=== PATIENT | female | born 1960 | race Caucasian/White ===

== ENCOUNTER 2016-03-23 00:55 | Emergency (ER) | payer OTHER ==
[~2016-03-23] VITALS: Ht 170.2 cm; Wt 61.0 kg
[~2016-03-23 00:55] MED LIST: FLUT16SP17 NASAL; LORA10TA3 PO; MOME13HF INHALATION; MONT10TA24 PO; OMEP40CA3 PO; VENL225T PO
[2016-03-23 01:12] VITALS: Ht 170.2 cm; Wt 61.0 kg
[2016-03-23] MEDS ORDERED: KETOROLAC 30 MG INJ IV STA (02:10)
--- NOTE | 2016-03-23 03:03 | RADRPT ---
PROCEDURE: CT brain without contrast. CLINICAL INDICATION: Left facial numbness. TECHNIQUE: CT scan of the brain was performed on a multi-detector high-resolution CT scanner. Co ntiguous axial images were obtained from the skull base to the vertex without intravenous contrast. Coronal and sagittal reformatted images were also obtained. Images were reviewed on the [employer]. One or more of the following dose reduction techniques were used: - Automated exposure control. - Adjustment of the mA and/or kV according to patient size. - Use of iterative reconstruction technique. Exam CTD/vol = 44.03 mGy. Total exam DLP = 720.23 mGy-cm. COMPARISON: 08/18/2013. FINDINGS: The ventricles and cortical sulci are within normal limits for patient's age. There is a ella cister na magna. There are no areas of abnormal attenuation within the brain parenchyma. There is no mass effect or midline shift. There is no intracranial hemorrhage or abnormal extra-axial collection. The calvarium is intact. There is no evidence of fracture. Visualized paranasal sinuses and mastoid air cells are clear. IMPRESSION: No acute intracranial abnormality identified. .Guicho Pitts MD, MD Date Time Electronically viewed and signed by .Guicho Pitts MD, on 03/23/2016 03:02 .T/
[2016-03-23 03:41] LABS: POTASSIUM 3.5 mmol/L (3.5-5.1)
[2016-03-23 03:43] LABS: CREATININE 0.59 mg/dl (0.44-1.00); INR 0.97; PROTIME 12.9 Sec (12.2-14.2)
[2016-03-23 03:44] LABS: CALCIUM 9.4 mg/dl (8.4-10.2); PARTIAL THROMBOPLASTIN TIME 25.2 Sec (25.0-35.0)
[2016-03-23 03:51] LABS: BASOPHILS % 0.3 % (0.0-2.0); EOSINOPHILS # 0.3 10^3/ul (0.0-0.5); EOSINOPHILS % 3.1 % (0.0-7.0); HEMATOCRIT 40.3 % (37.0-47.0); HEMOGLOBIN 13.4 g/dl (12.0-16.0); LYMPHOCYTES # 2.3 10^3/ul (0.8-2.9); MEAN CORPUSCULAR HEMOGLOBIN 29.1 pg (29.0-33.0); MEAN CORPUSCULAR HGB CONC 33.3 g/dl (32.0-37.0); MEAN CORPUSCULAR VOLUME 87.2 fl (82.0-101.0); MEAN PLATELET VOLUME 7.6 fl (7.4-10.4); MONOCYTE # 0.6 10^3/ul (0.3-0.9); MONOCYTES % 6.7 % (0.0-11.0); NEUTROPHIL # 5.3 10^3/ul (1.6-7.5); NEUTROPHILS % 62.9 % (39.0-77.0); PLATELET COUNT 313 10^3/UL (140-440); RED BLOOD COUNT 4.62 10^6/ul (4.20-5.40); RED CELL DISTRIBUTION WIDTH 13.7 % (11.5-14.5); UNCORRECTED WBC 8.4 10^3/ul (4.8-10.8); WHITE BLOOD COUNT 8.4 10^3/ul (4.8-10.8)
[2016-03-23 03:56] LABS: CONDITION 1
[2016-03-23 05:05] VITALS: BP 118/74; PULSE 86; RESP 17; TEMP 98.3
--- NOTE | 2016-03-23 05:44 | ERD ---
ER Documentation Chief Complaint Date/Time DATE: 03/23/16 TIME: 05:38 Chief Complaint left facial numbness & left facial droop x 2 days, no neuro deficits noted HPI 55-year-old female presenting complaining of 3 days of left-sided facial tingling associated with pain. Now she has associated left-sided headache that radiates along the side of her left head into the back of her head. She denies any neck pain or stiffness. She felt some associated eye pain this morning without any blurry vision or pain with eye movement. She states the pain is constant, nothing seems to make it better or worse. She has not tried any medication for the pain. She denies any focal weakness in her extremities. She has no difficulty ambulating. No recent trauma. ROS All systems reviewed and are negative except as per history of present illness. Medications Home Meds Reported Medications Mometasone-Formoterol (Dulera) 200-5 Mcg/Inh - 13 Gm Hfa.aer.ad, 2 PUFFS INHALATION BID, #1 INHALER 11/13/15 Venlafaxine Hcl* (Venlafaxine Hcl ER*) 225 Mg Tab.er.24, 225 MG PO DAILY, TAB.SA 11/13/15 Montelukast Sodium* (Montelukast Sodium*) 10 Mg Tablet, 10 MG PO QHS, #30 TAB 11/13/15 Loratadine* (Loratadine*) 10 Mg Tablet, 10 MG PO DAILY, #30 TAB 08/14/15 Fluticasone Propionate* (Fluticasone Propionate* Nasal) 50 Mcg/Watson - 16 Gm Watson.susp, 1 SPRAY NASAL DAILY, #1 BOTTLE TO EACH NOSTRIL 08/14/15 Omeprazole* (Prilosec*) 40 Mg Capsule.dr, 40 MG PO AC BREAKFAST, CAP 05/30/14 Allergies Allergies: Coded Allergies: Penicillins (Verified Allergy, Mild, RASH, 11/13/15) PMhx/Soc History of Surgery: Yes (APPENDECTOMY, HYSTERECTOMY) Anesthesia Reaction: No Hx Neurological Disorder: No Hx Respiratory Disorders: Yes (ASTHMA) Hx Cardiac Disorders: Yes (BRADYCARDIA) Hx Psychiatric Problems: Yes (DEPRESSION) Hx Miscellaneous Medical Probl: Yes (HYPOTHYROIDISM) Hx Alcohol Use: No Hx Substance Use: No Hx Tobacco Use: No Smoking Status: Never smoker FmHx Family History: No diabetes Physical Exam Vitals Vital Signs Date Time Temp Pulse Resp B/P Pulse Ox O2 Delivery O2 Flow Rate FiO2 03/23/16 05:05 98.3 86 17 118/74 99 03/23/16 03:50 98.3 75 17 129/77 99 03/23/16 01:50 98.3 75 17 121/60 99 03/23/16 01:12 98.3 59 20 115/57 99 Physical Exam Const: Well-appearing, no distress Head: Atraumatic Eyes: Normal Conjunctiva, EOMI, Perrla ENT: Normal External Ears, Nose and Mouth. Neck: Full range of motion. 2+ carotid pulses bilaterally, no bruits. No meningismus. Resp: Clear to auscultation bilaterally Cardio: Regular rate and rhythm, no murmurs Abd: Soft, non tender, non distended. Normal bowel sounds Skin: No petechiae or rashes Back: No midline or flank tenderness Ext: No cyanosis, or edema Neuro: M/S: Alert and oriented Face: EOMI, sensation intact to the left trigeminal distribution but decreased when compared to the right. All other cranial nerves intact Motor: Normal strength throughout Sensation: Normal sensation throughout Speech: Normal Cerebel: Normal coordination Normal gait Normal finger to nose DTR: 2+ and symmetric upper/lower extremities Psych: Normal Mood and Affect Result Diagram: 03/23/16 0230 03/23/16 0230 Results 24 hrs Laboratory Tests Test 03/23/16 02:30 Activated Partial Thromboplast Time 25.2Sec Anion Gap 16 Basophils # 0.010^3/ul Basophils % 0.3% Blood Urea Nitrogen 22mg/dl Calcium Level 9.4mg/dl Carbon Dioxide Level 28mmol/L Chloride Level 103mmol/L Creatinine 0.59mg/dl Eosinophils # 0.310^3/ul Eosinophils % 3.1% Glucose Level 117mg/dl Hematocrit 40.3% Hemoglobin 13.4g/dl INR International Normalized Ratio 0.97 Lymphocytes # 2.310^3/ul Lymphocytes % 27.0% Mean Corpuscular Hemoglobin 29.1pg Mean Corpuscular Hemoglobin Concent 33.3g/dl Mean Corpuscular Volume 87.2fl Mean Platelet Volume 7.6fl Monocytes # 0.610^3/ul Monocytes % 6.7% Neutrophils # 5.310^3/ul Neutrophils % 62.9% Nucleated Red Blood Cells # 0.010^3/ul Nucleated Red Blood Cells % 0.0/100WBC Platelet Count 73231^3/UL Potassium Level 3.5mmol/L Prothrombin Time 12.9Sec Prothrombin Time Ratio 1.0 Red Blood Count 4.6210^6/ul Red Cell Distribution Width 13.7% Sodium Level 143mmol/L White Blood Count 8.410^3/ul Current Medications Medications (Trade) Dose Ordered Sig/Selam Route PRN Reason Start Time Stop Time Status Last Admin Dose Admin Ketorolac Tromethamine (Toradol) 30 mg ONCE STAT IV 03/23/16 02:10 03/23/16 02:13 DC 03/23/16 02:37 Procedures/MDM Patient is complaining of left-sided facial pain and tingling with left-sided headache. Her neuro exam is nonfocal other than mild decreased sensation in the trigeminal distribution on the left side. Her CT head was unremarkable. Her labs are also unremarkable. After Toradol, the patient states that her pain has significantly improved. I have a low suspicion for carotid dissection or acute CVA. I suspect her symptoms may be secondary to a migraine versus trigeminal neuralgia versus other peripheral neuritis. there is no evidence of Bean's palsy. However I urged the patient to see her primary care doctor as soon as possible within the next 1-2 days for further evaluation and outpatient workup. Departure Diagnosis: Primary Impression: Left facial pain Additional Impressions: Numbness and tingling of left side of face Left-sided headache Condition: Stable Patient Instructions: What Are Migraine and Tension Headaches?, Trigeminal Neuralgia RONYE MIKE MD Mar 23, 2016 05:44
== END 2016-03-23 05:08 | disposition home or self-care (01) ==
LOC: E/R 00:55
DX: R51 Headache (principal); R40.2252 Coma scale, best verbal response, oriented, at arrival to emergency department; R20.0 Anesthesia of skin; J45.909 Unspecified asthma, uncomplicated; E03.9 Hypothyroidism, unspecified; R40.2362 Coma scale, best motor response, obeys commands, at arrival to emergency department; R40.2142 Coma scale, eyes open, spontaneous, at arrival to emergency department
CPT/HCPCS: 36415; 70450; 80048; 85025; 85610; 85651; 85730; 96374; 99285; J1885

== ENCOUNTER 2016-04-18 09:06 | Emergency (ER) | payer OTHER ==
[~2016-04-18] VITALS: Wt 60.5 kg
[2016-04-18] MEDS ORDERED: TRAM50TA2 PO (09:32)
[2016-04-18] MEDS ORDERED: IBUP-1542 PO (09:33)
[2016-04-18] MEDS ORDERED: HYDR30CR75 PR (09:33)
--- NOTE | 2016-04-18 09:35 | ERD ---
ER Documentation Chief Complaint Date/Time DATE: 04/18/16 TIME: 09:34 Chief Complaint RECTAL SWELLING FOR 5 DAYS. NO BLEEDING MILD DIARRHEA. PAIN IS WORSE HPI Patient is a 35-year-old female with past medical history of hypothyroidism, asthma, gastritis who presents to the emergency department with rectal pain 5 days. Patient states that she last took ibuprofen 600 mg at 6 AM today. Patient denies any rectal bleeding. Patient denies any fever, chills, nausea, vomiting, abdominal pain. Patient did have diarrhea 2 days ago which has now resolved. Patient reports decreased H2O intake and does report straining when having bowel movements. ROS All systems reviewed and are negative except as per history of present illness. Medications Home Meds Active Scripts Hydrocortisone Acetate* (Anusol-HC*) 30 Gm Cream.gm., 1 APPLIC MD TID, #1 TUB Prov:SAULO BAILEY PA-C 04/18/16 Ibuprofen* (Motrin*) 600 Mg Tab, 600 MG PO Q6, #20 TAB Prov:SAULO BAILEY PA-C 04/18/16 Tramadol HCl (Tramadol HCl) 50 Mg Tablet, 50 MG PO Q6 Y for PAIN, #10 TAB Prov:SAULO BAILEY PA-C 04/18/16 Reported Medications Mometasone-Formoterol (Dulera) 200-5 Mcg/Inh - 13 Gm Hfa.aer.ad, 2 PUFFS INHALATION BID, #1 INHALER 11/13/15 Venlafaxine Hcl* (Venlafaxine Hcl ER*) 225 Mg Tab.er.24, 225 MG PO DAILY, TAB.SA 11/13/15 Montelukast Sodium* (Montelukast Sodium*) 10 Mg Tablet, 10 MG PO QHS, #30 TAB 11/13/15 Loratadine* (Loratadine*) 10 Mg Tablet, 10 MG PO DAILY, #30 TAB 08/14/15 Fluticasone Propionate* (Fluticasone Propionate* Nasal) 50 Mcg/Buford - 16 Gm Buford.susp, 1 SPRAY NASAL DAILY, #1 BOTTLE TO EACH NOSTRIL 08/14/15 Omeprazole* (Prilosec*) 40 Mg Capsule.dr, 40 MG PO AC BREAKFAST, CAP 05/30/14 Allergies Allergies: Coded Allergies: Penicillins (Verified Allergy, Mild, RASH, 11/13/15) PMhx/Soc History of Surgery: Yes (APPENDECTOMY, HYSTERECTOMY) Anesthesia Reaction: No Hx Neurological Disorder: No Hx Respiratory Disorders: Yes (ASTHMA) Hx Cardiac Disorders: Yes (BRADYCARDIA) Hx Psychiatric Problems: Yes (DEPRESSION) Hx Miscellaneous Medical Probl: Yes (HYPOTHYROIDISM) Hx Alcohol Use: No Hx Substance Use: No Hx Tobacco Use: No Physical Exam Vitals Vital Signs Date Time Temp Pulse Resp B/P Pulse Ox O2 Delivery O2 Flow Rate FiO2 04/18/16 09:10 97.0 59 20 108/57 99 Physical Exam GENERAL: Well-developed, well-nourished female. Appears in no acute distress. HEAD: Normocephalic, atraumatic. EYES: Pupils are equally reactive bilaterally. EOMs grossly intact. No conjunctival erythema. ENT: Moist mucous membranes. No uvula deviation. No kissing tonsils. NECK: Supple. No meningismus. Normal range of motion of the neck. LUNG: Clear to auscultation bilaterally. No rhonchi, wheezing, rales or coarse breath sounds. HEART: Regular rate and rhythm. No murmurs, rubs or gallops. ABDOMEN: No scars, ecchymosis or rashes noted. Soft, nontender, and nondistended. Positive bowel sounds in all four quadrants. No rebound tenderness , no guarding. (-) McBurney's point tenderness. No CVA tenderness. RECTAL: Normal anus with skin tag and external hemorrhoid. Normal anal sphincter tone. No rectal bleeding noted. BACK: No midline tenderness. EXTREMITIES: Equal pulses bilaterally. No peripheral clubbing, cyanosis or edema. No unilateral leg swelling. NEUROLOGIC: Alert and oriented. Moving all four extremities without any difficulty. Normal speech. Steady gait. SKIN: Normal color. Warm and dry. No rashes or lesions. Procedures/MDM MEDICAL DECISION MAKING: Recent is a 55-year-old female who presents with rectal pain 5 days. Patient denies any bleeding. Vital signs were reviewed. Patient is afebrile. Patient was not hypoxic. Patient was hemodynamically stable. Physical exam findings are most consistent with external hemorrhoid. At this time, the patient's presentation is most consistent with hemorrhoids. Unable to rule out internal hemorrhoids at this time. Low suspicion for thrombosed hemorrhoid, anorectal abscess, anal fissure, fistula, mass, pilonidal cyst, rectal prolapse, rectal foreign body. Patient was advised to increase fiber intake and H20 intake. Patient advised to avoid straining. PRESCRIPTION: Anusol, Tramadol, Ibuprofen She was advised to use sitz baths. DISCHARGE: At this time, patient is stable for discharge and outpatient management. I have instructed the patient to follow-up with his/her primary care physician in 1-2 days. I have discussed with the patient the possibility of needing to see a GI specialist for further workup and imaging studies if symptoms persist. I have instructed the patient to promptly return to the ER for any new or worsening symptoms including increased pain, fever, nausea, vomiting, weakness or LOC. The patient and/or family expressed understanding of and agreement with this plan. All questions were answered. Home care instructions were provided. Departure Diagnosis: Primary Impression: Hemorrhoidal skin tags Condition: Stable Patient Instructions: Hemorrhoids Referrals: ELIEL JONES MD,HAL COKER,BOGDAN MANDEL MD, MD [facility] Additional Instructions: Llame al doctor ALEA y karen janee EMILY PARA DENTRO DE 1-2 JOSEPH.Dgale a la secretaria que nosotros le instruimos hacer esta emily.Avise o llame si dey condicin se empeora antes de la emily. Regresa aqui si peor o no mejor. Va a la doctor de GI specialista. Cheri baths con sitz bath. SAULO BAILEY PA-C Apr 18, 2016 09:35
== END 2016-04-18 10:05 | disposition home or self-care (01) ==
LOC: FTE 09:06
DX: K64.4 Residual hemorrhoidal skin tags (principal); E03.9 Hypothyroidism, unspecified; J45.909 Unspecified asthma, uncomplicated
CPT/HCPCS: 99283

== ENCOUNTER 2016-04-23 11:31 | Emergency (ER) | payer OTHER ==
[~2016-04-23] VITALS: Wt 68.0 kg
[~2016-04-23 11:31] MED LIST changes: +HYDR30CR75 PR; +IBUP-1542 PO; +TRAM50TA2 PO
[2016-04-23] MEDS ORDERED: ONDANSETRON 4 MG INJ IV STA (12:06)
[2016-04-23] MEDS ORDERED: morphine 4 MG/ML VIAL IV STA (12:06)
[2016-04-23] MEDS ORDERED: CIPROFLOXACIN 400MG/D5W 200 ML IVPB STA (12:06)
[2016-04-23 12:53] LABS: ADD UMIC YES; URINE BILIRUBIN (Dip) NEGATIVE (NEGATIVE); URINE BLOOD (Dip) 3+ (NEGATIVE); URINE COLOR LT. YELLOW (YELLOW); URINE GLUCOSE (Dip) NEGATIVE (NEGATIVE); URINE KETONES (Dip) NEGATIVE (NEGATIVE); URINE LEUKOCYTE ESTERASE (Dip) 1+ (NEGATIVE); URINE NITRITE (Dip) NEGATIVE (NEGATIVE); URINE TOTAL PROTEIN (Dip) NEGATIVE (NEGATIVE); URINE UROBILINOGEN (Dip) 0.2 E.U./dL (0.1-1.0)
[2016-04-23 12:55] LABS: BASOPHILS % 0.6 % (0.0-2.0); EOSINOPHILS # 0.1 10^3/ul (0.0-0.5); EOSINOPHILS % 1.3 % (0.0-7.0); HEMATOCRIT 43.5 % (37.0-47.0); HEMOGLOBIN 14.6 g/dl (12.0-16.0); LYMPHOCYTES # 1.7 10^3/ul (0.8-2.9); LYMPHOCYTES % 25.8 % (15.0-51.0); MEAN CORPUSCULAR HEMOGLOBIN 29.1 pg (29.0-33.0); MEAN CORPUSCULAR HGB CONC 33.4 g/dl (32.0-37.0); MEAN CORPUSCULAR VOLUME 87.1 fl (82.0-101.0); MEAN PLATELET VOLUME 7.2 fl (7.4-10.4); MONOCYTE # 0.4 10^3/ul (0.3-0.9); MONOCYTES % 6.5 % (0.0-11.0); NEUTROPHIL # 4.4 10^3/ul (1.6-7.5); NEUTROPHILS % 65.8 % (39.0-77.0); PLATELET COUNT 330 10^3/UL (140-440); RED CELL DISTRIBUTION WIDTH 13.6 % (11.5-14.5); UNCORRECTED WBC 6.6 10^3/ul (4.8-10.8); WHITE BLOOD COUNT 6.6 10^3/ul (4.8-10.8)
[2016-04-23 13:13] LABS: ALBUMIN 4.5 g/dl (3.3-4.9); URINE RBCS 25-50 /HPF (0)
[2016-04-23 13:14] LABS: BACTERIA,URINE FEW; CONDITION 1; POTASSIUM 4.3 mmol/L (3.5-5.1); SQUAMOUS EPITHELIAL CELL,UR FEW
[2016-04-23 13:16] LABS: ALBUMIN/GLOBULIN RATIO 1.5; BILIRUBIN,INDIRECT 0.4 mg/dl (0-1.1); BILIRUBIN,TOTAL 0.4 mg/dl (0.2-1.3); CREATININE 0.61 mg/dl (0.44-1.00); TOTAL PROTEIN 7.5 g/dl (6.1-8.1)
[2016-04-23 13:17] LABS: CALCIUM 9.6 mg/dl (8.4-10.2)
--- NOTE | 2016-04-23 13:19 | ERD ---
ER Documentation Chief Complaint Date/Time DATE: 04/23/16 TIME: 13:15 Chief Complaint abd pain llq since yesterday, no vomiting, dysuria and hematuria today. HPI This is a 56-year-old female presents to the emergency department complaining of frequency urgency and dysuria with hematuria that began this morning upon awakening. Several days prior to arrival the patient was seen and evaluated in the emergency department and treated for hemorrhoids. She has been undergoing sitz bath's and denies any further rectal bleeding. She has had no hemoptysis no hematemesis and no melanotic stools. The patient indicates that in addition to the frequency urgency and dysuria she also developed the sudden onset of left lower quadrant abdominal pain several hours prior to arrival. The pain is been persistent and is worse with urination. The pain does not radiate to the back. She has had no fevers no shaking or chills. She has no chest pain or pressure that radiates to the neck arm back or jaw. ROS All systems reviewed and are negative except as per history of present illness. Medications Home Meds Active Scripts Hydrocortisone Acetate* (Anusol-HC*) 30 Gm Cream.gm., 1 APPLIC PA TID, #1 TUB Prov:SAULO BAILEY PA-C 04/18/16 Ibuprofen* (Motrin*) 600 Mg Tab, 600 MG PO Q6, #20 TAB Prov:SAULO BAILEY PA-C 04/18/16 Tramadol HCl (Tramadol HCl) 50 Mg Tablet, 50 MG PO Q6 Y for PAIN, #10 TAB Prov:SAULO BAILEY PA-C 04/18/16 Reported Medications Mometasone-Formoterol (Dulera) 200-5 Mcg/Inh - 13 Gm Hfa.aer.ad, 2 PUFFS INHALATION BID, #1 INHALER 11/13/15 Venlafaxine Hcl* (Venlafaxine Hcl ER*) 225 Mg Tab.er.24, 225 MG PO DAILY, TAB.SA 11/13/15 Montelukast Sodium* (Montelukast Sodium*) 10 Mg Tablet, 10 MG PO QHS, #30 TAB 11/13/15 Loratadine* (Loratadine*) 10 Mg Tablet, 10 MG PO DAILY, #30 TAB 08/14/15 Fluticasone Propionate* (Fluticasone Propionate* Nasal) 50 Mcg/Gaylord - 16 Gm Gaylord.susp, 1 SPRAY NASAL DAILY, #1 BOTTLE TO EACH NOSTRIL 08/14/15 Omeprazole* (Prilosec*) 40 Mg Capsule.dr, 40 MG PO AC BREAKFAST, CAP 05/30/14 Allergies Allergies: Coded Allergies: Penicillins (Verified Allergy, Mild, RASH, 11/13/15) PMhx/Soc History of Surgery: Yes (APPENDECTOMY, HYSTERECTOMY) Anesthesia Reaction: No Hx Neurological Disorder: No Hx Respiratory Disorders: Yes (ASTHMA) Hx Cardiac Disorders: Yes (BRADYCARDIA) Hx Psychiatric Problems: Yes (DEPRESSION) Hx Miscellaneous Medical Probl: Yes (HYPOTHYROIDISM) Hx Alcohol Use: No Hx Substance Use: No Hx Tobacco Use: No Smoking Status: Never smoker Physical Exam Vitals Vital Signs Date Time Temp Pulse Resp B/P Pulse Ox O2 Delivery O2 Flow Rate FiO2 04/23/16 11:33 98.8 63 20 132/73 99 Physical Exam Constitutional:Well-developed. Well-nourished. HEENT:Normocephalic. Atraumatic.Pupils were equal round reactive to light. Moist mucous membranes.No tonsillar exudates. Neck: No nuchal rigidity. No lymphadenopathy. No posterior cervical spine tenderness or step-offs. Respiratory: Not using accessory muscles of respiration.Lungs were clear to auscultation bilaterally. No rhonchi. No rales. No wheezing. Cardiovascular: Regular rate regular rhythm.No murmurs. No rubs were appreciated.S1, S2 normal. Distal pulses are palpable 2+ bilaterally. GI: Abdomen was soft. Mild suprapubic tenderness. Non Distended. No pulsatile abdominal masses or bruits. No rebound. No guarding. Bowel sounds were present and normal. Muscle skeletal: Full range of motion of both the upper and lower extremities bilaterally.Normal muscle tone.No assymetrical calf tenderness or swelling. Skin: No petechia, no purpura. No lesions on the palms or the soles of the feet. No maculopapular rash. NEURO: Patient was alert, awake, orientated x3.No facial droop. Gait observed and normal with no ataxia.Speech had regular rate and rhythm. No focal neurological deficits. Result Diagram: 04/23/16 1230 04/23/16 1230 Results 24 hrs Laboratory Tests Test 04/23/16 12:30 Alanine Aminotransferase (ALT/SGPT) 37IU/L Albumin 4.5g/dl Albumin/Globulin Ratio 1.50 Alkaline Phosphatase 75IU/L Anion Gap 17 Aspartate Amino Transf (AST/SGOT) 47IU/L Basophils # 0.010^3/ul Basophils % 0.6% Blood Morphology Comment Blood Urea Nitrogen 22mg/dl Calcium Level 9.6mg/dl Carbon Dioxide Level 27mmol/L Chloride Level 103mmol/L Creatinine 0.61mg/dl Direct Bilirubin 0.00mg/dl Eosinophils # 0.110^3/ul Eosinophils % 1.3% Globulin 3.00g/dl Glucose Level 96mg/dl Hematocrit 43.5% Hemoglobin 14.6g/dl Indirect Bilirubin 0.4mg/dl Lymphocytes # 1.710^3/ul Lymphocytes % 25.8% Mean Corpuscular Hemoglobin 29.1pg Mean Corpuscular Hemoglobin Concent 33.4g/dl Mean Corpuscular Volume 87.1fl Mean Platelet Volume 7.2fl Monocytes # 0.410^3/ul Monocytes % 6.5% Neutrophils # 4.410^3/ul Neutrophils % 65.8% Nucleated Red Blood Cells # 0.010^3/ul Nucleated Red Blood Cells % 0.0/100WBC Platelet Count 90819^3/UL Potassium Level 4.3mmol/L Red Blood Count 5.0010^6/ul Red Cell Distribution Width 13.6% Sodium Level 143mmol/L Total Bilirubin 0.4mg/dl Total Protein 7.5g/dl Urine Bacteria FEW Urine Bilirubin NEGATIVE Urine Clarity CLEAR Urine Color LT. YELLOW Urine Glucose NEGATIVE% Urine Hemoglobin 3+ Urine Ketones NEGATIVE Urine Leukocyte Esterase 1+ Urine Microscopic RBC 25-50/HPF Urine Microscopic WBC 2-5/HPF Urine Nitrite NEGATIVE Urine Specific [place] 1.015 Urine Squamous Epithelial Cells FEW Urine Total Protein NEGATIVE Urine Urobilinogen 0.2 E.U./dL Urine Yeast FEW Urine pH 7.0 White Blood Count 6.610^3/ul Current Medications Medications (Trade) Dose Ordered Sig/Selam Route PRN Reason Start Time Stop Time Status Last Admin Dose Admin Morphine Sulfate (morphine) 4 mg ONCE STAT IV 04/23/16 12:06 04/23/16 12:15 DC 04/23/16 12:32 Ondansetron HCl 4 mg 4 mg ONCE STAT IV 04/23/16 12:06 2/22/17 12:15 DC 04/23/16 12:31 Ciprofloxacin/ Dextrose (Cipro Ivpb) 200 ml @ 200 mls/hr ONCE STAT IVPB 04/23/16 12:06 04/23/16 13:05 DC 04/23/16 12:31 IV Flush 10 ml 10 ml STK-MED ONCE .ROUTE 04/23/16 14:25 04/23/16 14:26 DC 04/23/16 14:36 Sodium Chloride (NS) 100 ml @ ud STK-MED ONCE .ROUTE 04/23/16 14:25 04/23/16 14:26 DC 04/23/16 14:36 Iohexol (Omnipaque 300mg/ ml) 150 ml STK-MED ONCE .ROUTE 04/23/16 14:26 04/23/16 14:27 DC 04/23/16 14:37 Procedures/MDM This patient presented to the emergency department with complaints of physical exam findings suggestive of acute cystitis. Ancillary laboratory work was obtained and the patient had no leukocytosis, was afebrile and nontoxic in appearance. The patient did receive a liter bolus of 0.9 normal saline intravenous morphine and Zofran for analgesia control and the urinalysis was suggestive of leukocytosis but there is no pyuria. Given that the patient had gross hematuria I did obtain a CT scan of the abdomen at this time which showed no evidence of obstructive uropathy, perforated viscus or pyelonephritis. The patient received a dose of parenteral antibiotics which included ciprofloxacin given that she has an allergy to penicillin. The patient stated her pain had resolved and she felt comfortable being discharged home. The patient was discharged home in fair condition with a prescription of ciprofloxacin. The patient was instructed to return to the emergency department at any time if there was any worsening of their condition. The patient stated they would follow up with their PCP in the next 24-48 hours to initiate a suitable medication regimen under the care of their PCP as well as to allow their PCP to monitor any drug reactions. The patient was discharged home with prescriptions after they gave informed consent to the new medication. They were also fully informed by myself on the adverse effects and adverse drug interactions in order to provide adequate safeguards to prevent possible adverse reactions to medications. Departure Diagnosis: Primary Impression: Urinary tract infection Urinary tract infection type: acute cystitis Hematuria presence: with hematuria Qualified Code: N30.01 - Acute cystitis with hematuria Additional Impression: Abdominal pain Abdominal location: left lower quadrant Qualified Code: R10.32 - Left lower quadrant pain Condition: Fair BONILLA SWIFT Apr 23, 2016 13:19
[2016-04-23] MEDS ORDERED: SOD CHLORIDE 0.9% 100 ML ONE (14:25)
[2016-04-23] MEDS ORDERED: IOHEXOL 300MG/ML 150 ML BTL ONE (14:26)
--- NOTE | 2016-04-23 14:48 | RADRPT ---
PROCEDURE: CT Abdomen and Pelvis with contrast. CLINICAL INDICATION: Pain. TECHNIQUE: Multiple contiguous axial CT images of the abdomen and pelvis were obtained following t he administration of 99 cc of Omnipaque-300. Coronal and sagittal reconstructions were also perform ed. CTDIvol (mGy): 15.20; Total Exam DLP (mGy-cm): 858.54. One or more of the following dose reduction techniques were utilized: - Automated exposure control. - Adjustment of the mA and/or kV according to patient size. - Use of iterative reconstruction technique. COMPARISON: 06/02/2015. FINDINGS: Limited imaging of the lower thorax demonstrates a tiny calcified granuloma of the left lower lobe. The liver and spleen are homogeneous in enhancement. The gallbladder, pancreas and adrenal glands a re unremarkable. The kidneys are symmetric in size and enhancement. Multifocal contour deformities are seen within th e right kidney and suggest sequelae of cortical scarring. There is no hydronephrosis or abnormal per inephric inflammation. There are no ureteral stones. The abdominal aorta is normal in caliber. There is no periaortic / retroperitoneal lymphadenopathy. The stomach and small intestines are unremarkable. A moderate volume of formed stool seen throughou t the colon. The appendix is not visualized. There are no focal inflammatory changes of the mesent irving. There is no mesenteric lymphadenopathy. There is no ascites. The bladder is collapsed. The uterus is absent. The adnexa are unremarkable. There is no free pelv ic fluid. There is no pelvic sidewall or inguinal lymphadenopathy. Mild degenerative changes of the spine are present. Body wall soft tissues are unremarkable. IMPRESSION: No evidence of abdominopelvic mass, lymphadenopathy or acute inflammatory pathology. Multifocal contour deformities of the right kidney suggesting sequelae of cortical scarring. The ap pearance of the right kidney is unchanged from prior examination. There is no evidence of nephroure terolithiasis, urinary tract obstruction or urinary tract inflammation. RPTAT: HLST .Emily Mcconnell MD, Date Time Electronically viewed and signed by .Emily Mcconnell MD, on 04/23/2016 14:47 .T/
[2016-04-23] MEDS ORDERED: CIPR500T4 PO (15:12)
[2016-04-23] MEDS ORDERED: IBUP800T25 PO (15:12)
[2016-04-23 15:25] VITALS: BP 136/67; PULSE 68; TEMP 97.8
== END 2016-04-23 15:32 | disposition home or self-care (01) ==
LOC: E/R 11:31
DX: N30.01 Acute cystitis with hematuria (principal); R10.32 Left lower quadrant pain; J45.909 Unspecified asthma, uncomplicated; E03.9 Hypothyroidism, unspecified
CPT/HCPCS: 74177; 80053; 81001; 85025; 87086; 96374; 96375; 99285; J0744; J2270; J2405; Q9967; 81003

== ENCOUNTER 2016-06-12 13:36 | Outpatient (CLI) | payer OTHER ==
[~2016-06-12] VITALS: Ht 157.5 cm; Wt 60.0 kg
[~2016-06-12 13:36] MED LIST changes: +CIPR500T4 PO; +IBUP800T25 PO
[2016-06-12 14:05] VITALS: BP 102/58; PULSE 65; RESP 16; Ht 157.5 cm; Wt 60.0 kg
[2016-06-12] MEDS ORDERED: ALBU18HF INHALATION (14:14)
[2016-06-12] MEDS ORDERED: LEVO100T87 PO (14:14)
[2016-06-12] MEDS ORDERED: MIRT15TA PO (14:14)
--- NOTE | 2016-06-12 15:28 | PN ---
Date/Time of Note Date/Time of Note DATE: 06/12/16 TIME: 15:21 Outpatient Progress Note Chief Complaint Syncopal episode/hypothyroidism/PUD/COPD/depression/bradycardia HPI Syncopal episode/according to patient patient syncopal episode, patient was hospitalized, patient was in the hospital for 2 days, no seizure-like activity, no chest pain prior to episode, no palpitation, no history of any seizure activity in the past, no head injury, no headache or dizziness prior to about episode, Hypothyroidism/patient has a history of hypothyroidism, no puffiness of eyes, no constipation, on medication, no side effect of medication, PUD/no nausea or vomiting, no heartburn, no hematemesis or melena, COPD/patient has COPD, no cough expectoration or wheezing, hemoptysis, Depression patient has slight depression, on medication, no side effect of medication, no suicidal idea, Bradycardia/patient has a bradycardia, no chest pain, no dizziness or lightheadedness, Review of Systems Const: No Fever, no chills, no Wt. loss, no Fatigue, normal appetite, no diaphoresis. Eyes: No pain, no discharge, no redness, no visual change, no foreign body. ENT: No pain, no bleeding, no congestion, no sore throat, no dysphagia, no discharge or rhinitis. Lymph: No adenopathy, no tender nodes, no lymphedema. Resp: No SOB, no cough, no sputum, no wheezing, no chest pain. CV: No chest pain, no palpitaions, no MCKEON, no PND, no edema. GI: Normal appetite, no pain, no nausea, no vomiting, no diarrhea, no blood, no constipation. : No frequency, no urgency, no dysuria, no hematuria, no flank pain, no discharge, no bleeding. Musc: No bone/joint pain, no back pain, no neck pain, no knee pain, no restricted ROM. Skin: No rash, no skin lesions, no erythema, no laceration, no bruising, no pruritus. Neuro: No CELESTE, no dizziness, no syncope, no seizure, no focal-weakness. Endo: No polyuria, no polydypsia, no dry-skin, no temp-intolerance. Psych: No hallucinations, no depression, no anxiety, no suicidal ideation. Ext: No edema, no pain, no ulcer, no weakness. Physical Exam Vital Signs Date Time Temp Pulse Resp B/P Pulse Ox O2 Delivery O2 Flow Rate FiO2 06/12/16 14:05 98.2 65 16 102/58 99 Room Air General Appearance: A 56 year-old female who appears well-developed, well- nourished, in no acute distress. HEENT: Head normocephalic, atraumatic. Pupils equal, round, reactive to light and accommodate. Sclerae are no jaundice. Nasal turbinates pink without erythema or nasal discharge. Mucous membranes pink and moist without lesions. Oropharynx clear without any exudate or discharge. NECK: Supple. Trachea midline, No thyromegaly, No cervical lymphadenopathy, No mass, No carotid bruits, No JVD, Carotid pulses 2+ bilaterally. PULMONARY: Clear to auscultaion bilaterally, No retractions, Chest expansion symmetric bilaterally, no rales, no ronchi, no dulness on percussion. CARDIAC: Normal SI and S2, Regular rate and rythm, no murmur, gallop, or rub. GASTROINTESTINAL: Abdomen is soft, non-tender, Non Rigid, No distention, Positive bowel sounds x4 quadrants, Liver normal. SKIN: Warm, dry, no rash, no bruise, no echmosis. EXTREMITIES: Bilateral lower extremities normal, no edema, no phlabitus, pulse palpable, no contracture. MUSCULOSKELETAL: Spine Normal, Non-tender, Normal range of motion, No swelling, no deformity, no clubbing, or cyanosis, the patient has no edema to bilateral lower extremities, dorsalis pedis pulses palpable bilaterally. NEUROLOGIC: The patient is awake, alert, oriented, responding to yes/no questions appropriately, moving all extremities, cranial nerve intact, normal strenght, normal power, normal coordination, normal gait. Allergies Coded Allergies: Penicillins (Verified Allergy, Mild, RASH, 11/13/15) PMH Syncopal episode/hypothyroidism/PUD/COPD/depression/history of bradycardia Social Hx No smoking or drinking, Family Hx Father had a heart attack, brother had a heart attack, and , another brother had a heart attack, Family history of diabetes, sister has diabetes mother had diabetes, Patient History: Cardiac disorder 33 FATHER G8 SIBLING Endocrine and metabolic disease 33 FATHER G8 [place]LING 32 MOTHER Hypertension 33 FATHER G8 SIBLING Assessment/Plan Impression Syncopal episode/hypothyroidism/PUD/COPD/depression/bradycardia Plan Patient education done about a bowel disease, and, possible complication, I do not have history and physical from the hospital, and I have CAT scan and carotid Doppler study results, an EKG, do not have any report with the patient was seen by neurologist or aquatics specialist, will try to get the medical record, Patient was advised to take baby aspirin,81 mg p.o. daily, At present patient does not have any symptoms, will monitor closely, if any symptoms patient advised to call us, patient encouraged to follow with the primary care physician, for further workup and treatment, Patient also had a history of UTI in the past, patient has appointment with urologist, Medications Home Meds Active Scripts Hydrocortisone Acetate* (Anusol-HC*) 30 Gm Cream.gm., 1 APPLIC [place] TID, #1 TUB Prov:SAULO BAILEY PA-C 04/18/16 Tramadol HCl (Tramadol HCl) 50 Mg Tablet, 50 MG PO Q6 Y for PAIN, #10 TAB Prov:SAULO BAILEY PA-C 04/18/16 Reported Medications Mirtazapine* (Remeron*) 15 Mg Tablet, 15 MG PO HS, TAB 06/12/16 Albuterol Sulfate* (Ventolin HFA*) 18 Gm Hfa.aer.ad, 2 PUFF INHALATION Q4H, #1 INHALER 06/12/16 Levothyroxine Sodium* (Levothyroxine Sodium*) 100 Mcg Tablet, 100 MCG PO BEFORE BREAKFAST, #30 TAB 06/12/16 Mometasone-Formoterol (Dulera) 200-5 Mcg/Inh - 13 Gm Hfa.aer.ad, 2 PUFFS INHALATION BID, #1 INHALER 11/13/15 Venlafaxine Hcl* (Venlafaxine Hcl ER*) 225 Mg Tab.er.24, 225 MG PO DAILY, TAB.SA 11/13/15 Montelukast Sodium* (Montelukast Sodium*) 10 Mg Tablet, 10 MG PO QHS, #30 TAB 11/13/15 Loratadine* (Loratadine*) 10 Mg Tablet, 10 MG PO DAILY, #30 TAB 08/14/15 Fluticasone Propionate* (Fluticasone Propionate* Nasal) 50 Mcg/[place] - 16 Gm [place].susp, 1 SPRAY NASAL DAILY, #1 BOTTLE TO EACH NOSTRIL 08/14/15 Omeprazole* (Prilosec*) 40 Mg Capsule.dr, 40 MG PO AC BREAKFAST, CAP 05/30/14 Discontinued Scripts Ibuprofen* (Motrin*) 800 Mg Tab, 800 MG PO Q6H Y for PAIN AND OR ELEVATED TEMP, #30 TAB Prov:BONILLA SWIFT 04/23/16 Ciprofloxacin Hcl* (Ciprofloxacin Hcl*) 500 Mg Tablet, 500 MG PO BID for 10 Days , TAB Prov:BONILLA SWIFT 04/23/16 Ibuprofen* (Motrin*) 600 Mg Tab, 600 MG PO Q6, #20 TAB Prov:SAULO BAILEY PA-C 04/18/16 JONATHAN STRATTON MD Jun 12, 2016 15:28
== END 2016-06-12 16:22 | disposition home or self-care (01) ==
LOC: DCC 13:36
PROVIDERS: ATTEND Internal Medicine
DX: E03.9 Hypothyroidism, unspecified (principal); J44.9 Chronic obstructive pulmonary disease, unspecified; K27.9 Peptic ulcer, site unspecified, unspecified as acute or chronic, without hemorrhage or perforation; R55 Syncope and collapse

== ENCOUNTER 2016-06-19 09:32 | Emergency (ER) | payer OTHER ==
[~2016-06-19] VITALS: Ht 160 cm; Wt 60.0 kg
[~2016-06-19 09:32] MED LIST changes: +ALBU18HF INHALATION; -CIPR500T4 PO; -IBUP-1542 PO; -IBUP800T25 PO; +LEVO100T87 PO; +MIRT15TA PO
[2016-06-19 09:35] VITALS: Ht 160 cm; Wt 60.0 kg
[2016-06-19] MEDS ORDERED: SOD CHLORIDE 0.9% 500 ML IV STA (09:58)
[2016-06-19] MEDS ORDERED: morphine 4 MG/ML VIAL IV STA (09:58)
[2016-06-19] MEDS ORDERED: ONDANSETRON 4 MG INJ IV STA (09:58)
--- NOTE | 2016-06-19 10:05 | ERA ---
ER Documentation Chief Complaint Date/Time DATE: 06/19/16 TIME: 10:00 Chief Complaint rectal pain x 1 month, seen pmd this week, waiting for colonoscopy HPI 56-year-old female history of asthma, hypertension who presents the emergency room with rectal pain. She describes approximately 14 days of rectal pain she states that it feels that it is on the inside. The patient describes a burning sensation. She does have a remote history of hemorrhoids. She denies any bleeding, no foreign body insertion. She describes a subjective fever several days ago but does describe dysuria urgency and frequency. Per triage note it appears the patient saw her primary care physician is awaiting colonoscopy. She did not report this to me. [employer] Accountant used. ROS All systems reviewed and are negative except as per history of present illness. Medications Home Meds Active Scripts Ciprofloxacin Hcl* (Ciprofloxacin Hcl*) 500 Mg Tablet, 500 MG PO BID for 5 Days , TAB Prov:RATNA BLACKBURN MD 06/19/16 Docusate Sodium* (Colace*) 100 Mg Capsule, 100 MG PO BID Y for CONSTIPATION, # 30 CAP Prov:RATNA BLACKBURN MD 06/19/16 Hydrocortisone Acetate* (Anusol-HC*) 30 Gm Cream.gm., 1 APPLIC [place] TID, #1 TUB Prov:SAULO BAILEY PA-C 04/18/16 Tramadol HCl (Tramadol HCl) 50 Mg Tablet, 50 MG PO Q6 Y for PAIN, #10 TAB Prov:SAULO BAILEY PA-C 04/18/16 Reported Medications Ergocalciferol (Vitamin D2) (VITAMIN D2) 50,000 Unit Capsule, 58918 UNIT PO ONCE A WEEK, CAP 06/19/16 Ibuprofen* (Ibuprofen*) 800 Mg Tab, 800 MG PO DAILY, TAB 06/19/16 Mirtazapine* (Remeron*) 15 Mg Tablet, 15 MG PO HS, TAB 06/12/16 Albuterol Sulfate* (Ventolin HFA*) 18 Gm Hfa.aer.ad, 2 PUFF INHALATION Q4H, #1 INHALER 06/12/16 Levothyroxine Sodium* (Levothyroxine Sodium*) 100 Mcg Tablet, 100 MCG PO BEFORE BREAKFAST, #30 TAB 06/12/16 Mometasone-Formoterol (Dulera) 200-5 Mcg/Inh - 13 Gm Hfa.aer.ad, 2 PUFFS INHALATION BID, #1 INHALER 11/13/15 Venlafaxine Hcl* (Venlafaxine Hcl ER*) 225 Mg Tab.er.24, 225 MG PO DAILY, TAB.SA 11/13/15 Montelukast Sodium* (Montelukast Sodium*) 10 Mg Tablet, 10 MG PO QHS, #30 TAB 11/13/15 Loratadine* (Loratadine*) 10 Mg Tablet, 10 MG PO DAILY, #30 TAB 08/14/15 Fluticasone Propionate* (Fluticasone Propionate* Nasal) 50 Mcg/[place] - 16 Gm [place].susp, 1 SPRAY NASAL DAILY, #1 BOTTLE TO EACH NOSTRIL 08/14/15 Omeprazole* (Prilosec*) 40 Mg Capsule.dr, 40 MG PO AC BREAKFAST, CAP 05/30/14 Discontinued Scripts Ibuprofen* (Motrin*) 800 Mg Tab, 800 MG PO Q6H Y for PAIN AND OR ELEVATED TEMP, #30 TAB Prov:BONILLA SWIFT 04/23/16 Ciprofloxacin Hcl* (Ciprofloxacin Hcl*) 500 Mg Tablet, 500 MG PO BID for 10 Days , TAB Prov:BONILLA SWIFT 04/23/16 Ibuprofen* (Motrin*) 600 Mg Tab, 600 MG PO Q6, #20 TAB Prov:SAULO BAILEY PA-C 04/18/16 Allergies Allergies: Coded Allergies: Penicillins (Verified Allergy, Mild, RASH, 06/19/16) PMhx/Soc History of Surgery: Yes (APPENDECTOMY, HYSTERECTOMY) Anesthesia Reaction: No Hx Neurological Disorder: No Hx Respiratory Disorders: Yes (ASTHMA) Hx Cardiac Disorders: Yes (BRADYCARDIA) Hx Psychiatric Problems: Yes (DEPRESSION) Hx Miscellaneous Medical Probl: Yes (HYPOTHYROIDISM) Hx Alcohol Use: No Hx Substance Use: No Hx Tobacco Use: No Smoking Status: Never smoker FmHx Family History: No diabetes Physical Exam Vitals Vital Signs Date Time Temp Pulse Resp B/P Pulse Ox O2 Delivery O2 Flow Rate FiO2 06/19/16 09:35 98.7 68 18 126/76 98 Physical Exam General: Well developed, well nourished, no acute distress Head: Normocephalic, atraumatic. 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 Normal external rectal exam, no lesions, no external hemorrhoids. Digital rectal examination reveals mild diffuse tenderness without fluctuance or mass no evidence of perianal abscess, no internal hemorrhoid palpated. No blood, brown stool. MSK: No edema, no unilateral swelling, 5/5 strength Neurologic: Alert and oriented, moving all extremities, normal speech, no focal weakness, no cerebellar signs Skin: No rash Psych: Normal mood Result Diagram: 06/19/16 1020 06/19/16 1020 Results 24 hrs Laboratory Tests Test 06/19/16 10:20 06/19/16 12:07 06/19/16 12:09 White Blood Count 5.010^3/ul Red Blood Count 5.4010^6/ul Hemoglobin 15.4g/dl Hematocrit 47.9% Mean Corpuscular Volume 88.7fl Mean Corpuscular Hemoglobin 28.5pg Mean Corpuscular Hemoglobin Concent 32.2g/dl Red Cell Distribution Width 13.0% Platelet Count 00287^3/UL Mean Platelet Volume 9.4fl Neutrophils % 42.2% Lymphocytes % 42.3% Monocytes % 9.5% Eosinophils % 5.0% Basophils % 0.8% Nucleated Red Blood Cells % 0.0/100WBC Neutrophils # 2.110^3/ul Lymphocytes # 2.110^3/ul Monocytes # 0.510^3/ul Eosinophils # 0.310^3/ul Basophils # 0.010^3/ul Nucleated Red Blood Cells # 0.010^3/ul Sodium Level 141mmol/L Potassium Level 4.3mmol/L Chloride Level 100mmol/L Carbon Dioxide Level 29mmol/L Anion Gap 16 Blood Urea Nitrogen 13mg/dl Creatinine 0.68mg/dl Glucose Level 67mg/dl Calcium Level 9.6mg/dl Bedside Urine pH (LAB) 7.0 Bedside Urine Protein (LAB) Negative Bedside Urine Glucose (UA) Negative Bedside Urine Ketones (LAB) Negative Bedside Urine Blood Negative Bedside Urine Nitrite (LAB) Negative Bedside Urine Leukocyte Esterase (L Negative Bedside Glucose 84mg/dL Current Medications Medications (Trade) Dose Ordered Sig/Selam Route PRN Reason Start Time Stop Time Status Last Admin Dose Admin Sodium Chloride (NS) 500 ml @ 500 mls/hr Q1H STAT IV 06/19/16 09:58 06/19/16 10:57 DC 06/19/16 11:04 Morphine Sulfate (morphine) 4 mg ONCE STAT IV 06/19/16 09:58 06/19/16 10:01 DC 06/19/16 11:04 Ondansetron HCl (Zofran Inj) 4 mg ONCE STAT IV 06/19/16 09:58 06/19/16 10:01 DC 06/19/16 11:04 IV Flush 10 ml 10 ml STK-MED ONCE .ROUTE 06/19/16 11:23 06/19/16 11:24 DC 06/19/16 11:40 Sodium Chloride (NS) 100 ml @ ud STK-MED ONCE .ROUTE 06/19/16 11:23 06/19/16 11:24 DC 06/19/16 11:40 Iodixanol (Visipaque Locm) 100 ml STK-MED ONCE .ROUTE 06/19/16 11:23 06/19/16 11:24 DC 06/19/16 11:40 Procedures/MDM EKG, MONITORS, & DIAGNOSTIC IMAGING: CT abdomen and pelvis: IMPRESSION: No evidence of urolithiasis, obstructive uropathy, diverticulitis or appendicitis. No perirectal abscess seen. LAB INTERPRETATION: Slight hypoglycemia. Her white count is normal. MEDICAL DECISION MAKING: The patient presents with rectal pain for approximately 2 weeks. The patient has no evidence of hemorrhoids on exam. She has no evidence of perianal abscess. Consider possible perirectal abscess given the patient's description of internal pain. She did describe subjective fevers however on digital rectal examination no palpable mass or fluctuance is noted. The patient appears to be uncomfortable. It should be noted that the patient has multiple visits to the emergency room over the past 12 months a total of 8. These are for nonspecific reasons. Patient does not appear to have drug-seeking behavior at least on this review of her electronic medical records. For these reasons the patient will benefit from laboratory testing, CT imaging of the abdomen and pelvis with IV contrast. Outpatient colonoscopy seems appropriate. Proctitis seems less likely given no focal tenderness on digital rectal examination, though not impossible. ER COURSE: The patient has no leukocytosis. No CT evidence of proctitis or perirectal abscess. The patient is sleeping and resting comfortably. Her glucose is slightly low, Accu-Chek was checked. Patient was given something to eat. The patient has no signs or symptoms of acute pathology causing her pain. The patient is already being arranged for colonoscopy. I recommend outpatient follow-up. Empiric ciprofloxacin for potential UTI. The patient was advised to return for any worsening symptoms. She will be initiated on stool softener. I kept the patient and/or family informed of laboratory and diagnostic imaging results throughout the emergency room course. DISPOSITION PLAN: We discussed follow up with the patient's primary care doctor within 24 to 48 hours as needed. We also discussed return to the emergency room for worsening symptoms or worsening condition. Outpatient referral: Gastroenterology Discharge Medications: Colace, Cipro Departure Diagnosis: Primary Impression: Rectal pain Additional Impression: Urinary tract infection Qualified Code: N30.00 - Acute cystitis without hematuria Condition: Stable RANTA BLACKBURN MD Jun 19, 2016 10:05
[2016-06-19 10:45] LABS: ADD SCAN DIFF NO
[2016-06-19] MEDS ORDERED: IBUP800T25 PO (10:50)
[2016-06-19 10:53] LABS: BASOPHILS % 0.8 % (0.0-2.0); EOSINOPHILS # 0.3 10^3/ul (0.0-0.5); HEMATOCRIT 47.9 % (37.0-47.0); HEMOGLOBIN 15.4 g/dl (12.0-16.0); LYMPHOCYTES # 2.1 10^3/ul (0.8-2.9); LYMPHOCYTES % 42.3 % (15.0-51.0); MEAN CORPUSCULAR HEMOGLOBIN 28.5 pg (29.0-33.0); MEAN CORPUSCULAR HGB CONC 32.2 g/dl (32.0-37.0); MEAN CORPUSCULAR VOLUME 88.7 fl (82.0-101.0); MEAN PLATELET VOLUME 9.4 fl (7.4-10.4); MONOCYTE # 0.5 10^3/ul (0.3-0.9); MONOCYTES % 9.5 % (0.0-11.0); NEUTROPHIL # 2.1 10^3/ul (1.6-7.5); NEUTROPHILS % 42.2 % (39.0-77.0); PLATELET COUNT 297 10^3/UL (140-415)
[2016-06-19] MEDS ORDERED: ERGO500037 PO (10:57)
[2016-06-19 10:59] LABS: POTASSIUM 4.3 mmol/L (3.5-5.1)
[2016-06-19 11:01] LABS: CREATININE 0.68 mg/dl (0.44-1.00)
[2016-06-19 11:02] LABS: CALCIUM 9.6 mg/dl (8.4-10.2)
[2016-06-19] MEDS ORDERED: SOD CHLORIDE 0.9% 100 ML ONE (11:23)
[2016-06-19] MEDS ORDERED: IODIXANOL LOCM 100 ML BTL ONE (11:23)
--- NOTE | 2016-06-19 11:52 | RADRPT ---
PROCEDURE: CT abdomen and pelvis with intravenous contrast. CLINICAL INDICATION: Rectal pain, subjective fever, eval for marissa-rectal abscess TECHNIQUE: Following intravenous contrast, spiral CT of the abdomen pelvis was performed and is re constructed at 2.5 mm contiguous axial intervals from the dome of the diaphragm to the inferior pubi c rami. Computer reformatted coronal and sagittal images are included. CT D I 7 millicurie Dose 390 millicurie per centimeter COMPARISON: CT abdomen pelvis April 23, 2016 FINDINGS: Lung bases are clear of any infiltrate or mass. There is no effusion. The liver is of normal size, contour and attenuation with no mass or intrahepatic ductal dilatation. No gallstones are present. No splenic, adrenal or pancreatic abnormalities present. Kidneys enhance symmetrically. No hydronephrosis, calculus or masses present. Ureters are of corinne l course and caliber with no stone. No bladder mass or stone is present. Uterus and ovaries are normal. No bowel mass or obstruction is seen. There is no phlegmon, ascites or pneumoperitoneum. Appendix i s not confidently visualized, however, no inflamed appendix is seen. There is no evidence of perire ctal abscess. No aneurysm is detected. There is no adenopathy. The osseous structures are intact. IMPRESSION: No evidence of urolithiasis, obstructive uropathy, diverticulitis or appendicitis. No perirectal abscess seen. .Tavares Lyon MD, MD Date Time Electronically viewed and signed by .Tavares Lyon MD, on 06/19/2016 11:52 .A/
[2016-06-19] MEDS ORDERED: DOCU-144 PO (11:57)
[2016-06-19] MEDS ORDERED: CIPR500T4 PO (11:59)
[2016-06-19 12:07] LABS: URINE BLOOD (Dip) POC Negative (NEGATIVE)
[2016-06-19 12:13] VITALS: BP 122/77; PULSE 69; RESP 16; TEMP 98.7
== END 2016-06-19 12:26 | disposition home or self-care (01) ==
LOC: E/R 09:32
DX: K62.89 Other specified diseases of anus and rectum (principal); N30.00 Acute cystitis without hematuria; J45.909 Unspecified asthma, uncomplicated; E03.9 Hypothyroidism, unspecified
CPT/HCPCS: 36415; 74177; 80048; 81003; 82962; 85025; 96374; 96375; 99285; J2270; J2405; J7040; Q9967

== ENCOUNTER 2016-06-26 13:17 | Outpatient (CLI) | payer OTHER ==
[~2016-06-26] VITALS: Ht 160 cm; Wt 60.0 kg
[~2016-06-26 13:17] MED LIST changes: +CIPR500T4 PO; +DOCU-144 PO; +ERGO500037 PO; +IBUP800T25 PO
[2016-06-26 14:01] VITALS: BP 119/63; PULSE 60; RESP 18; Ht 160 cm; Wt 60.0 kg
--- NOTE | 2016-06-26 14:20 | PN ---
Date/Time of Note Date/Time of Note DATE: 06/26/16 TIME: 14:17 Outpatient Progress Note Chief Complaint Fatigue/hypothyroidism/PUD/COPD/depression HPI Fatigue/patient feels slight weakness and tiredness, patient was recently admitted with syncopal episode, no similar episode recently, Hypothyroidism/no puffiness of ice, no constipation, on medication, PUD/no nausea vomiting, no hematemesis or melena, n COPD/no cough expectoration hemoptysis, patient does have slight shortness of breath or congestion, reduce with inhaler, Depression/patient slightly depressed, no suicidal, Review of Systems Const: [No Fever, no chills, no Wt. loss, nmild to moderateFatigue, normal appetite, no diaphoresis.] Eyes: [No pain, no discharge, no redness, no visual change, no foreign body.] ENT: [No pain, no bleeding, no congestion, no sore throat, no dysphagia, no discharge or rhinitis.] Lymph: [No adenopathy, no tender nodes, no lymphedema.] Resp: [No SOB, no cough, no sputum, no wheezing, no chest pain.] CV: [No chest pain, no palpitaions, no MCKEON, no PND, no edema.] GI: [Normal appetite, no pain, no nausea, no vomiting, no diarrhea, no blood, no constipation.] : [No frequency, no urgency, no dysuria, no hematuria, no flank pain, no discharge, no bleeding.] Musc: [No bone/joint pain, no back pain, no neck pain, no knee pain, no restricted ROM.] Skin: [No rash, no skin lesions, no erythema, no laceration, no bruising, no pruritus.] Neuro: [No CELESTE, no dizziness, no syncope, no seizure, no focal-weakness.] Endo: [No polyuria, no polydypsia, no dry-skin, no temp-intolerance.] Psych: [No hallucinations, no depression, no anxiety, no suicidal ideation.] Ext: [No edema, no pain, no ulcer, no weakness.] Physical Exam Vital Signs Date Time Temp Pulse Resp B/P Pulse Ox O2 Delivery O2 Flow Rate FiO2 06/26/16 14:01 98.1 60 18 119/63 98 Room Air General Appearance: A 56year-old [female[who appears well-developed, well- nourished, in no acute distress.] HEENT: [Head normocephalic, atraumatic. Pupils equal, round, reactive to light and accommodate. Sclerae are no jaundice. Nasal turbinates pink without erythema or nasal discharge. Mucous membranes pink and moist without lesions. Oropharynx clear without any exudate or discharge.] NECK: [Supple. Trachea midline, No thyromegaly, No cervical lymphadenopathy, No mass, No carotid bruits, No JVD, Carotid pulses 2+ bilaterally.] PULMONARY: [Clear to auscultaion bilaterally, No retractions, Chest expansion symmetric bilaterally, no rales, no ronchi, no dulness on percussion.] CARDIAC: [Normal SI and S2, Regular rate and rythm, no murmur, gallop, or rub.] GASTROINTESTINAL: [Abdomen is soft, non-tender, Non Rigid, No distention, Positive bowel sounds x4 quadrants, Liver normal.] SKIN: [Warm, dry, no rash, no bruise, no echmosis.] EXTREMITIES: [Bilateral lower extremities normal, no edema, no phlabitus, pulse palpable, no contracture.] MUSCULOSKELETAL: [Spine Normal, Non-tender, Normal range of motion, No swelling , no deformity, no clubbing, or cyanosis, the patient has no edema to bilateral lower extremities, dorsalis pedis pulses palpable bilaterally.] NEUROLOGIC: [The patient is awake, alert, oriented, responding to yes/no questions appropriately, moving all extremities, cranial nerve intact, normal strenght, normal power, normal coordination, normal gait.] Allergies Coded Allergies: Penicillins (Verified Allergy, Mild, RASH, 06/19/16) PMH No change Social Hx No change Family Hx No change Patient History: Cardiac disorder 33 FATHER G8 [place]LING Endocrine and metabolic disease 33 FATHER G8 [place] 32 MOTHER Hypertension 33 FATHER G8 [place]LING Assessment/Plan Impression Fatigue/hypothyroidism/PUD/COPD/depression Plan Patient doing much better, no syncopal episode, patient has improved significantly, patient denies any chest pain, no palpitation, no syncope, patient does have slight weakness and tiredness, patient does have a history of hypothyroidism, Patient encouraged to follow with the primary care physician, patient will need repeat lab including TSH, patient told to follow with the primary care physician , Patient has appointment with urologist, Patient has all the medication, Medications Home Meds Active Scripts Hydrocortisone Acetate* (Anusol-HC*) 30 Gm Cream.gm., 1 APPLIC [place] TID, #1 TUB Prov:SAULO BAILEY PA-C 04/18/16 Tramadol HCl (Tramadol HCl) 50 Mg Tablet, 50 MG PO Q6 Y for PAIN, #10 TAB Prov:SAULO BAILEY PA-C 04/18/16 Reported Medications Ergocalciferol (Vitamin D2) (VITAMIN D2) 50,000 Unit Capsule, 94254 UNIT PO ONCE A WEEK, CAP 06/19/16 Ibuprofen* (Ibuprofen*) 800 Mg Tab, 800 MG PO DAILY, TAB 06/19/16 Mirtazapine* (Remeron*) 15 Mg Tablet, 15 MG PO HS, TAB 06/12/16 Albuterol Sulfate* (Ventolin HFA*) 18 Gm Hfa.aer.ad, 2 PUFF INHALATION Q4H, #1 INHALER 06/12/16 Levothyroxine Sodium* (Levothyroxine Sodium*) 100 Mcg Tablet, 100 MCG PO BEFORE BREAKFAST, #30 TAB 06/12/16 Mometasone-Formoterol (Dulera) 200-5 Mcg/Inh - 13 Gm Hfa.aer.ad, 2 PUFFS INHALATION BID, #1 INHALER 11/13/15 Venlafaxine Hcl* (Venlafaxine Hcl ER*) 225 Mg Tab.er.24, 225 MG PO DAILY, TAB.SA 11/13/15 Montelukast Sodium* (Montelukast Sodium*) 10 Mg Tablet, 10 MG PO QHS, #30 TAB 11/13/15 Loratadine* (Loratadine*) 10 Mg Tablet, 10 MG PO DAILY, #30 TAB 08/14/15 Fluticasone Propionate* (Fluticasone Propionate* Nasal) 50 Mcg/[place] - 16 Gm [place].susp, 1 SPRAY NASAL DAILY, #1 BOTTLE TO EACH NOSTRIL 08/14/15 Omeprazole* (Prilosec*) 40 Mg Capsule.dr, 40 MG PO AC BREAKFAST, CAP 05/30/14 Discontinued Scripts Ciprofloxacin Hcl* (Ciprofloxacin Hcl*) 500 Mg Tablet, 500 MG PO BID for 5 Days , TAB Prov:RATNA BLACKBURN MD 06/19/16 Docusate Sodium* (Colace*) 100 Mg Capsule, 100 MG PO BID Y for CONSTIPATION, # 30 CAP Prov:RATNA BLACKBURN MD 06/19/16 JONATHAN STRATTON MD Jun 26, 2016 14:20
== END 2016-06-26 15:59 | disposition home or self-care (01) ==
LOC: DCC 13:17
PROVIDERS: ATTEND Internal Medicine
DX: E03.9 Hypothyroidism, unspecified (principal); J44.9 Chronic obstructive pulmonary disease, unspecified; R53.83 Other fatigue

== ENCOUNTER 2016-07-09 15:09 | Emergency (ER) | payer OTHER ==
[~2016-07-09] VITALS: Ht 157.5 cm; Wt 58.8 kg
[~2016-07-09 15:09] MED LIST changes: -CIPR500T4 PO; -DOCU-144 PO
[2016-07-09 15:13] VITALS: Ht 157.5 cm; Wt 58.8 kg
[2016-07-09] MEDS ORDERED: SYN112 PO (18:58)
[2016-07-09] MEDS ORDERED: VENL150C PO (19:00)
--- NOTE | 2016-07-09 19:09 | RADRPT ---
PROCEDURE: XR Chest. CLINICAL INDICATION: Shortness of breath. TECHNIQUE: Single frontal view. COMPARISON: 11/13/2015. FINDINGS: The lungs are clear. The heart size is normal. There is no pleural effusion. There is no pneumothorax. IMPRESSION: 1. Normal chest radiograph. 2. No change from 11/13/2015. RPTAT: QQ .Ton Gunderson MD, MD Date Time Electronically viewed and signed by .Ton Gunderson MD, MD on 07/09/2016 19:08 .R/
[2016-07-09] MEDS ORDERED: BENZ100C70 PO (20:11)
[2016-07-09] MEDS ORDERED: ALBU18HF INHALATION (20:11)
--- NOTE | 2016-07-09 20:12 | ERD ---
ER Documentation Chief Complaint Date/Time DATE: 07/09/16 TIME: 20:12 Chief Complaint BACK,ST,CELESTE, CHEST PAIN, SOB X 4 DAYS HPI Patient is a 56-year-old female with asthma presents with chest pain and shortness of breath. The patient also has back pain and cough. She has cough for the past 3 days. She says that she has "flu". The cough was dry cough without productive sputum. She tried Robitussin. She says that she had a fever of 102 yesterday. She tried ibuprofen 800 mg. Upon review of old medical records the patient has multiple visits to the ER for various complaints. ROS All systems reviewed and are negative except as per history of present illness. Medications Home Meds Active Scripts Benzonatate* (Tessalon Perle*) 100 Mg Capsule, 100 MG PO Q8H Y for COUGH, #30 CAP Prov:JENNIFER FRAGA MD 07/09/16 Albuterol Sulfate* (Ventolin HFA*) 18 Gm Hfa.aer.ad, 2 PUFF INHALATION Q4H, #1 INHALER Prov:JENNIFER FRAGA MD 07/09/16 Reported Medications Venlafaxine Hcl* (Effexor XR*) 150 Mg Cap.sr.24h, 150 MG PO BID, CAP TAKE 1 TAB-QAM AND 2 TAB-QHS 07/09/16 Levothyroxine Sodium* (Levothyroxine Sodium*) 112 Mcg Tablet, 112 MCG PO BEFORE BREAKFAST, #30 TAB 07/09/16 Ergocalciferol (Vitamin D2) (VITAMIN D2) 50,000 Unit Capsule, 95208 UNIT PO ONCE A WEEK, CAP Thursday06/19/16 Ibuprofen* (Ibuprofen*) 800 Mg Tab, 800 MG PO DAILY, TAB 06/19/16 Mometasone-Formoterol (Dulera) 200-5 Mcg/Inh - 13 Gm Hfa.aer.ad, 2 PUFFS INHALATION BID, #1 INHALER 11/13/15 Montelukast Sodium* (Montelukast Sodium*) 10 Mg Tablet, 10 MG PO QHS, #30 TAB 11/13/15 Loratadine* (Loratadine*) 10 Mg Tablet, 10 MG PO DAILY, #30 TAB 08/14/15 Fluticasone Propionate* (Fluticasone Propionate* Nasal) 50 Mcg/[place] - 16 Gm [place].susp, 1 SPRAY NASAL DAILY, #1 BOTTLE TO EACH NOSTRIL 08/14/15 Omeprazole* (Prilosec*) 40 Mg Capsule.dr, 40 MG PO AC BREAKFAST, CAP 05/30/14 Discontinued Reported Medications Mirtazapine* (Remeron*) 15 Mg Tablet, 15 MG PO HS, TAB 06/12/16 Albuterol Sulfate* (Ventolin HFA*) 18 Gm Hfa.aer.ad, 2 PUFF INHALATION Q4H, #1 INHALER 06/12/16 Levothyroxine Sodium* (Levothyroxine Sodium*) 100 Mcg Tablet, 100 MCG PO BEFORE BREAKFAST, #30 TAB 06/12/16 Venlafaxine Hcl* (Venlafaxine Hcl ER*) 225 Mg Tab.er.24, 225 MG PO DAILY, TAB.SA 11/13/15 Discontinued Scripts Hydrocortisone Acetate* (Anusol-HC*) 30 Gm Cream.gm., 1 APPLIC [place] TID, #1 TUB Prov:SAULO BAILEY PA-C 04/18/16 Tramadol HCl (Tramadol HCl) 50 Mg Tablet, 50 MG PO Q6 Y for PAIN, #10 TAB Prov:SAULO BAILEY PA-C 04/18/16 Allergies Allergies: Coded Allergies: Penicillins (Verified Allergy, Mild, RASH, 07/09/16) PMhx/Soc History of Surgery: Yes (APPENDECTOMY, HYSTERECTOMY, stents) Anesthesia Reaction: No Hx Neurological Disorder: No Hx Respiratory Disorders: Yes (ASTHMA) Hx Cardiac Disorders: Yes (BRADYCARDIA) Hx Psychiatric Problems: Yes (DEPRESSION) Hx Miscellaneous Medical Probl: Yes (HYPOTHYROIDISM) Hx Alcohol Use: No Hx Substance Use: No Hx Tobacco Use: No Smoking Status: Never smoker FmHx Family History: diabetes Physical Exam Vitals Vital Signs Date Time Temp Pulse Resp B/P Pulse Ox O2 Delivery O2 Flow Rate FiO2 07/09/16 20:16 98.1 47 15 101/66 98 Room Air 07/09/16 19:18 97.8 52 16 114/58 97 Room Air 07/09/16 18:35 98.3 51 17 114/70 100 Room Air 07/09/16 15:13 98.1 65 18 125/70 99 Physical Exam Const: No acute distress Head: Atraumatic Eyes: Normal Conjunctiva ENT: Normal External Ears, Nose and Mouth. Neck: Full range of motion..~ No meningismus. Resp: Clear to auscultation bilaterally Cardio: Regular rate and rhythm, no murmurs Abd: Soft, non tender, non distended. Normal bowel sounds Skin: No petechiae or rashes Back: No midline or flank tenderness Ext: No cyanosis, or edema Neur: Awake and alert Psych: Normal Mood and Affect Procedures/MDM EKG read by me: Rate/Rhythm: Sinus bradycardia rate of 54 Intervals: Normal Impression: Sinus bradycardia without ischemia Chest x-ray negative per radiology. Patient is a 56-year-old female presents with chest pain and shortness of breath. I believe the patient likely has a viral illness. I do not believe she requires antibiotics at this time. I doubt acute coronary syndrome, pneumonia, pneumothorax, pulmonary embolism, or aortic dissection. I believe outpatient management is appropriate. She should follow-up with her primary doctor within 24-48 hours. Departure Diagnosis: Primary Impression: URI (upper respiratory infection) URI type: unspecified URI Qualified Code: J06.9 - Upper respiratory tract infection, unspecified type Condition: Fair Patient Instructions: Uri, Viral, No Abx (Adult) Additional Instructions: Llame al doctor MAANA y karen janee EMILY PARA DENTRO DE 1-2 JOSEPH.Dgale a la secretaria que nosotros le instruimos hacer esta emily.Avise o llame si dey condicin se empeora antes de la emily. Regresa aqui si peor o no mejor. JENNIFER FRAGA MD July 09, 2016 20:12
[2016-07-09 20:16] VITALS: BP 101/66; PULSE 47; RESP 15; TEMP 98.1
== END 2016-07-09 20:23 | disposition home or self-care (01) ==
LOC: E/R 15:09
DX: J06.9 Acute upper respiratory infection, unspecified (principal); J45.909 Unspecified asthma, uncomplicated; E03.9 Hypothyroidism, unspecified; Z98.61 Coronary angioplasty status
CPT/HCPCS: 71010; 93005

== ENCOUNTER 2016-12-23 11:06 | Emergency (ER) | payer OTHER ==
[~2016-12-23] VITALS: Ht 157.5 cm; Wt 59.5 kg
[~2016-12-23 11:06] MED LIST changes: +BENZ100C70 PO; -HYDR30CR75 PR; -LEVO100T87 PO; +LEVO112T57 PO; -MIRT15TA PO; -TRAM50TA2 PO; +VENL150C PO; -VENL225T PO
[2016-12-23 11:15] VITALS: Ht 157.5 cm; Wt 59.5 kg
[2016-12-23] MEDS ORDERED: ONDANSETRON (ODT) 4 MG TAB ODT STA (11:47)
[2016-12-23] MEDS ORDERED: HYDROCODONE/APAP (5/325) TAB PO ONE (12:00)
[2016-12-23 12:15] LABS: ADD UMIC YES; UR ASCORBIC ACID NEGATIVE (NEGATIVE); UR BILIRUBIN (Dip) NEGATIVE (NEGATIVE); UR BLOOD (Dip) NEGATIVE (NEGATIVE); UR CLARITY CLEAR (CLEAR); UR COLOR YELLOW (YELLOW); UR GLUCOSE (Dip) NEGATIVE (NEGATIVE); UR KETONES (Dip) NEGATIVE (NEGATIVE); UR LEUKOCYTE ESTERASE (Dip) 2+ Leu/ul (NEGATIVE); UR MUCUS FEW /HPF (NONE SEEN); UR NITRITE (Dip) NEGATIVE (NEGATIVE); UR RBC 3 /HPF (0-5); UR SPECIFIC GRAVITY (Dip) 1.019 (1.003-1.030); UR SQUAMOUS EPITHELIAL CELL FEW /HPF (FEW); UR TOTAL PROTEIN (Dip) NEGATIVE (NEGATIVE); UR UROBILINOGEN (Dip) NEGATIVE (NEGATIVE)
[2016-12-23 12:19] LABS: BASOPHILS % 0.5 % (0.0-2.0); EOSINOPHILS # 0.3 10^3/ul (0.0-0.5); EOSINOPHILS % 4.5 % (0.0-7.0); HEMATOCRIT 40.8 % (37.0-47.0); HEMOGLOBIN 13.9 g/dl (12.0-16.0); LYMPHOCYTES # 2.3 10^3/ul (0.8-2.9); LYMPHOCYTES % 37.6 % (15.0-51.0); MEAN CORPUSCULAR HEMOGLOBIN 29.4 pg (29.0-33.0); MEAN CORPUSCULAR HGB CONC 34.1 g/dl (32.0-37.0); MEAN CORPUSCULAR VOLUME 86.4 fl (82.0-101.0); MEAN PLATELET VOLUME 8.8 fl (7.4-10.4); MONOCYTE # 0.6 10^3/ul (0.3-0.9); MONOCYTES % 9.7 % (0.0-11.0); NEUTROPHIL # 2.9 10^3/ul (1.6-7.5); NEUTROPHILS % 47.5 % (39.0-77.0); PLATELET COUNT 289 10^3/UL (140-415); RED BLOOD COUNT 4.72 10^6/ul (4.20-5.40); RED CELL DISTRIBUTION WIDTH 12.6 % (11.5-14.5); WHITE BLOOD COUNT 6.1 10^3/ul (4.8-10.8)
[2016-12-23 12:39] LABS: ALBUMIN 4.4 g/dl (3.3-4.9); ALBUMIN/GLOBULIN RATIO 1.33; BILIRUBIN,INDIRECT 0.3 mg/dl (0-1.1); BILIRUBIN,TOTAL 0.3 mg/dl (0.2-1.3); CALCIUM 9.8 mg/dl (8.4-10.2); CREATININE 0.77 mg/dl (0.44-1.00); POTASSIUM 3.9 mmol/L (3.5-5.1); TOTAL PROTEIN 7.7 g/dl (6.1-8.1)
[2016-12-23] MEDS ORDERED: NAPR-260 PO (12:47)
[2016-12-23] MEDS ORDERED: SULF1TAB31 PO (12:47)
[2016-12-23] MEDS ORDERED: ONDA4TAB14 PO (13:07)
--- NOTE | 2016-12-23 15:02 | ERD ---
ER Documentation Chief Complaint Chief Complaint abd pain with nausea, diarrhea since colonoscopy 2 wks ago. dizziness HPI Patient is a 56-year-old female presenting to the emergency department with complaints of left upper and left lower quadrant pain is mild, intermittently for the past 2 weeks. Patient states her primary care physician ordered a colonoscopy and EGD, however the patient has not had the studies completed yet. She denies any rectal bleeding. She has had some intermittent nausea and vomiting. Additionally she feels sleepy. No other symptoms reported currently. ROS All systems reviewed and are negative except as per history of present illness. Medications Home Meds Active Scripts Ondansetron (Ondansetron Odt) 4 Mg Tab.rapdis, 4 MG PO Q6H Y for NAUSEA AND/OR VOMITING, #10 TAB Prov:KHURRAM KRUGER PA-C 12/23/16 Naproxen* (Naprosyn*) 500 Mg Tablet, 500 MG PO BID Y for PAIN AND/OR INFLAMMATION, #20 TAB Prov:KHURRAM KRUGER PA-C 12/23/16 Sulfamethoxazole/Trimethoprim* (Bactrim Ds* Tablet) 1 Each Tablet, 1 TAB PO BID , #10 TAB Prov:KHURRAM KRUGER PA-C 12/23/16 Benzonatate* (Tessalon Perle*) 100 Mg Capsule, 100 MG PO Q8H Y for COUGH, #30 CAP Prov:JENNIFER FRAGA MD 07/09/16 Albuterol Sulfate* (Ventolin HFA*) 18 Gm Hfa.aer.ad, 2 PUFF INHALATION Q4H, #1 INHALER Prov:JENNIFER FRAGA MD 07/09/16 Reported Medications Venlafaxine Hcl* (Effexor XR*) 150 Mg Cap.sr.24h, 150 MG PO BID, CAP TAKE 1 TAB-QAM AND 2 TAB-QHS 07/09/16 Levothyroxine Sodium* (Levothyroxine Sodium*) 112 Mcg Tablet, 112 MCG PO BEFORE BREAKFAST, #30 TAB 07/09/16 Ergocalciferol (Vitamin D2) (VITAMIN D2) 50,000 Unit Capsule, 01358 UNIT PO ONCE A WEEK, CAP Thursday06/19/16 Ibuprofen* (Ibuprofen*) 800 Mg Tab, 800 MG PO DAILY, TAB 06/19/16 Mometasone-Formoterol (Dulera) 200-5 Mcg/Inh - 13 Gm Hfa.aer.ad, 2 PUFFS INHALATION BID, #1 INHALER 11/13/15 Montelukast Sodium* (Montelukast Sodium*) 10 Mg Tablet, 10 MG PO QHS, #30 TAB 11/13/15 Loratadine* (Loratadine*) 10 Mg Tablet, 10 MG PO DAILY, #30 TAB 08/14/15 Fluticasone Propionate* (Fluticasone Propionate* Nasal) 50 Mcg/[place] - 16 Gm [place].susp, 1 SPRAY NASAL DAILY, #1 BOTTLE TO EACH NOSTRIL 08/14/15 Omeprazole* (Prilosec*) 40 Mg Capsule.dr, 40 MG PO AC BREAKFAST, CAP 05/30/14 Allergies Allergies: Coded Allergies: Penicillins (Verified Allergy, Mild, RASH, 07/09/16) PMhx/Soc History of Surgery: Yes (APPENDECTOMY, HYSTERECTOMY, stents) Anesthesia Reaction: No Hx Neurological Disorder: No Hx Respiratory Disorders: Yes (ASTHMA) Hx Cardiac Disorders: Yes (BRADYCARDIA) Hx Psychiatric Problems: Yes (DEPRESSION) Hx Miscellaneous Medical Probl: Yes (HYPOTHYROIDISM) Hx Alcohol Use: No Hx Substance Use: No Hx Tobacco Use: No Physical Exam Vitals Vital Signs Date Time Temp Pulse Resp B/P Pulse Ox O2 Delivery O2 Flow Rate FiO2 12/23/16 11:15 98.6 74 18 116/71 98 Physical Exam Const: Nontoxic, well-appearing female in no acute distress. Head: Atraumatic Eyes: Normal Conjunctiva ENT: Normal External Ears, Nose and Mouth. Neck: Full range of motion..~ No meningismus. Resp: Clear to auscultation bilaterally Cardio: Regular rate and rhythm, no murmurs Abd: Soft, mild tenderness palpation diffusely, no rebound tenderness or guarding, no McBurney's point tenderness, non distended. Normal bowel sounds Skin: No petechiae or rashes Ext: No cyanosis, or edema Neur: Awake and alert Psych: Normal Mood and Affect Result Diagram: 12/23/16 1155 12/23/16 1155 Results 24 hrs Laboratory Tests Test 12/23/16 11:55 12/23/16 11:58 White Blood Count 6.110^3/ul Red Blood Count 4.7210^6/ul Hemoglobin 13.9g/dl Hematocrit 40.8% Mean Corpuscular Volume 86.4fl Mean Corpuscular Hemoglobin 29.4pg Mean Corpuscular Hemoglobin Concent 34.1g/dl Red Cell Distribution Width 12.6% Platelet Count 00196^3/UL Mean Platelet Volume 8.8fl Neutrophils % 47.5% Lymphocytes % 37.6% Monocytes % 9.7% Eosinophils % 4.5% Basophils % 0.5% Nucleated Red Blood Cells % 0.0/100WBC Neutrophils # 2.910^3/ul Lymphocytes # 2.310^3/ul Monocytes # 0.610^3/ul Eosinophils # 0.310^3/ul Basophils # 0.010^3/ul Nucleated Red Blood Cells # 0.010^3/ul Sodium Level 145mmol/L Potassium Level 3.9mmol/L Chloride Level 105mmol/L Carbon Dioxide Level 28mmol/L Anion Gap 16 Blood Urea Nitrogen 18mg/dl Creatinine 0.77mg/dl Glucose Level 101mg/dl Calcium Level 9.8mg/dl Total Bilirubin 0.3mg/dl Direct Bilirubin 0.00mg/dl Indirect Bilirubin 0.3mg/dl Aspartate Amino Transf (AST/SGOT) 36IU/L Alanine Aminotransferase (ALT/SGPT) 40IU/L Alkaline Phosphatase 72IU/L Total Protein 7.7g/dl Albumin 4.4g/dl Globulin 3.30g/dl Albumin/Globulin Ratio 1.33 Lipase 187U/L Urine Color YELLOW Urine Clarity CLEAR Urine pH 5.0 Urine Specific [place] 1.019 Urine Ketones NEGATIVEmg/dL Urine Nitrite NEGATIVEmg/dL Urine Bilirubin NEGATIVEmg/dL Urine Urobilinogen NEGATIVEmg/dL Urine Leukocyte Esterase 2+[place]/ul Urine Microscopic RBC 3/HPF Urine Microscopic WBC 13/HPF Urine Squamous Epithelial Cells FEW/HPF Urine Mucus FEW/HPF Urine Hemoglobin NEGATIVEmg/dL Urine Glucose NEGATIVEmg/dL Urine Total Protein NEGATIVEmg/dl Current Medications Medications (Trade) Dose Ordered Sig/Selam Route PRN Reason Start Time Stop Time Status Last Admin Dose Admin Acetaminophen/ Hydrocodone Bitart ([place] (5/325)) 1 tab ONCE ONCE PO 12/23/16 12:00 12/23/16 12:01 DC 12/23/16 12:08 Ondansetron HCl (Zofran Odt) 4 mg ONCE STAT ODT 12/23/16 11:47 10/24/17 11:49 DC 12/23/16 12:08 Procedures/MDM 56-year-old female presents to the emergency department with complaints of abdominal pain. The patient was given p.o. Napoleon and p.o. Zofran in the department and she was feeling improved prior to discharge. Review of laboratory tests showed no signs of leukocytosis or anemia. Chemistry panel was within normal limits urinalysis was concerning for mild urinary tract infection but no pyelonephritis. This is likely the source of the patient's abdominal pain. I have low suspicion for acute abdomen. Low suspicion for sepsis or other emergent conditions. Upon review of the patient's medical records, it was found that patient has chronic abdominal pain and the patient was here recently for the same complaint and had a negative workup including a negative CT abdomen and pelvis without contrast. The patient did show me paperwork from her primary care physician and she had an EGD and colonoscopy ordered within the next couple of weeks. I reiterated to the patient the importance of having the studies completed. Primary impression: Urinary tract infection Secondary impression: Abdominal pain with unclear etiology Pt/family in agreement with discharge plan/diagnosis. Pt/family advised to return immediately with any new or worsening symptoms. Follow-up with primary care physician within the next 1-2 days. Disclaimer: Inadvertent spelling and grammatical errors are likely due to EHR/ dictation software use and do not reflect on the overall quality of patient care. Also, please note that the electronic time recorded on this note does not necessarily reflect the actual time of the patient encounter. Departure Diagnosis: Primary Impression: Urinary tract infection Urinary tract infection type: acute cystitis Hematuria presence: without hematuria Qualified Code: N30.00 - Acute cystitis without hematuria Additional Impression: Abdominal pain Abdominal location: unspecified location Qualified Code: R10.9 - Abdominal pain, unspecified abdominal location Condition: Fair Patient Instructions: Understanding Urinary Tract Infections (UTIs) Additional Instructions: No mas mejor en 2-3 felix, regresar. Mas peor en 24 horas, regresear rapidamente. Ir a doctor primario en 1-2 felix. Usar instrucciones cuando lakisha medicamento. KHURRAM KRUGER PA-C Dec 23, 2016 15:02
== END 2016-12-23 13:23 | disposition home or self-care (01) ==
LOC: FTE 11:06
DX: N30.00 Acute cystitis without hematuria (principal); J45.909 Unspecified asthma, uncomplicated; E03.9 Hypothyroidism, unspecified; R11.2 Nausea with vomiting, unspecified
CPT/HCPCS: 36415; 80053; 81001; 83690; 85025; 99284

== ENCOUNTER 2017-01-29 11:27 | Emergency (ER) | payer OTHER ==
[~2017-01-29] VITALS: Wt 59.9 kg
[~2017-01-29 11:27] MED LIST changes: +NAPR-260 PO; +ONDA4TAB14 PO; +SULF1TAB31 PO
--- NOTE | 2017-01-29 12:41 | ERD ---
ER Documentation Chief Complaint Chief Complaint PT HERE WITH C/O COUGH, ALSO LOWER BACK PAIN HPI 56-year-old female, previously healthy, presents to the emergency department complaining of 2 weeks with progressive rectal irritation and burning sensation. Denies rectal bleeding, fevers, chills, no abdominal pain, no diarrhea or constipation. Treatment attempted: Ufse-hie-dvqihic preparation H with no relief of the symptoms. No history of previous episodes ROS All systems reviewed and are negative except as per history of present illness. Medications Home Meds Active Scripts Hydrocodone/Acetaminophen ([place] 5-325 Tablet) 1 Each Tablet, 1 TAB PO Q6H Y for PAIN, #12 TAB Prov:SLICK DIEGO MD 01/29/17 Clotrimazole* (Clotrimazole* AF) 1% - 30 Gm Cream.gm., 1 APPLIC TOP BID for 7 Days, TUB Prov:SLICK DIEGO MD 01/29/17 Fluconazole* (Diflucan*) 150 Mg Tablet, 150 MG PO ONCE, #1 TAB Prov:SLICK DIEGO MD 01/29/17 Ondansetron (Ondansetron Odt) 4 Mg Tab.rapdis, 4 MG PO Q6H Y for NAUSEA AND/OR VOMITING, #10 TAB Prov:KHURRAM KRUGER PA-C 12/23/16 Naproxen* (Naprosyn*) 500 Mg Tablet, 500 MG PO BID Y for PAIN AND/OR INFLAMMATION, #20 TAB Prov:KHURRAM KRUGER PA-C 12/23/16 Sulfamethoxazole/Trimethoprim* (Bactrim Ds* Tablet) 1 Each Tablet, 1 TAB PO BID , #10 TAB Prov:KHURRAM KRUGER PA-C 12/23/16 Benzonatate* (Tessalon Perle*) 100 Mg Capsule, 100 MG PO Q8H Y for COUGH, #30 CAP Prov:JENNIFER FRAGA MD 07/09/16 Albuterol Sulfate* (Ventolin HFA*) 18 Gm Hfa.aer.ad, 2 PUFF INHALATION Q4H, #1 INHALER Prov:JENNIFER FRAGA MD 07/09/16 Reported Medications Venlafaxine Hcl* (Effexor XR*) 150 Mg Cap.sr.24h, 150 MG PO BID, CAP TAKE 1 TAB-QAM AND 2 TAB-QHS 07/09/16 Levothyroxine Sodium* (Levothyroxine Sodium*) 112 Mcg Tablet, 112 MCG PO BEFORE BREAKFAST, #30 TAB 07/09/16 Ergocalciferol (Vitamin D2) (VITAMIN D2) 50,000 Unit Capsule, 87581 UNIT PO ONCE A WEEK, CAP Thursday06/19/16 Ibuprofen* (Ibuprofen*) 800 Mg Tab, 800 MG PO DAILY, TAB 06/19/16 Mometasone-Formoterol (Dulera) 200-5 Mcg/Inh - 13 Gm Hfa.aer.ad, 2 PUFFS INHALATION BID, #1 INHALER 11/13/15 Montelukast Sodium* (Montelukast Sodium*) 10 Mg Tablet, 10 MG PO QHS, #30 TAB 11/13/15 Loratadine* (Loratadine*) 10 Mg Tablet, 10 MG PO DAILY, #30 TAB 08/14/15 Fluticasone Propionate* (Fluticasone Propionate* Nasal) 50 Mcg/[place] - 16 Gm [place].susp, 1 SPRAY NASAL DAILY, #1 BOTTLE TO EACH NOSTRIL 08/14/15 Omeprazole* (Prilosec*) 40 Mg Capsule.dr, 40 MG PO AC BREAKFAST, CAP 05/30/14 Allergies Allergies: Coded Allergies: Penicillins (Verified Allergy, Mild, RASH, 07/09/16) PMhx/Soc History of Surgery: Yes (APPENDECTOMY, HYSTERECTOMY, stents) Anesthesia Reaction: No Hx Neurological Disorder: No Hx Respiratory Disorders: Yes (ASTHMA) Hx Cardiac Disorders: Yes (BRADYCARDIA) Hx Psychiatric Problems: Yes (DEPRESSION) Hx Miscellaneous Medical Probl: Yes (HYPOTHYROIDISM) Hx Alcohol Use: No Hx Substance Use: No Hx Tobacco Use: No Smoking Status: Never smoker Physical Exam Vitals Vital Signs Date Time Temp Pulse Resp B/P Pulse Ox O2 Delivery O2 Flow Rate FiO2 01/29/17 11:29 98.6 77 17 101/63 98 Physical Exam Const: Alert, oriented, vital signs stable Head: Atraumatic Eyes: Normal Conjunctiva ENT: Normal External Ears, Nose and Mouth. Neck: Full range of motion..~ No meningismus. Resp: Clear to auscultation bilaterally Cardio: Regular rate and rhythm, no murmurs Abd: Soft, non tender, non distended. Normal bowel sounds : Perianal erythematous plaques, no masses, normal rectal sphincter. Back: No midline or flank tenderness Procedures/MDM 56y/o female patient, presents to the ED c/o rectal irritation for 14 days. Vital signs stable, Physical exam showed perirectal erythema, no masses, no signs of infection. Differential diagnosis include but not limited to: Hemorrhoids, perianal abscess, cellulitis, HSV. No clinical suspicion for abscess. Physical examination and clinical presentation consistent most likely with candidiasis. During the ED course the patient remained stable, no new complaints. Results and clinical impression discussed with patient who agrees with management. The patient is stable to be treated outpatient and will be discharged home with a Rx for fluconazole and topical clotrimazole Side effects of prescribed medications (headache, rash, nausea, vomiting, diarrhea) were reviewed. The patient was instructed to follow up with the primary care provider in the next 48h. If symptoms persist, worsen or new symptoms develop, then patient should return to the ED immediately. Instructions explained and given to patient in Azeri with acknowledgment and demonstrated understanding. Disclaimer: Inadvertent spelling and grammatical errors are likely due to EHR/ dictation software use and do not reflect on the overall quality of patient care. Also, please note that the electronic time recorded on this note does not necessarily reflect the actual time of the patient encounter. Departure Diagnosis: Primary Impression: Jacqui infection of genital region Condition: Stable Additional Instructions: Muchas vitor por [facility] para dey servicio. Esperamos que en dey visita a la sharon de emergencia dey problema medico haya sido solucionado y que se sienta mucho mejor. Para estar seguros que dey mejoria sigue en proceso, le pedimos el favor de hacer janee wilfredo de seguimiento medico con dey doctor primario en los proximos 2-4 felix. Lleve con usted estos documentos y las medicinas recetadas. Si romel sintomas empeoran y no puede russel a dey doctor, por favor regrese a sharon de emergencia. En sailaja que usted no tenga un mdico de atencin primaria: Llame al mdico o clnica comunitaria de referencia que aparece abajo merlin las horas de consultorio para hacer janee wilfredo para que le vean. CLINICAS: [facility] [phone] [facility] [phone] [id number] [facility] [phone] [address] [place] [id number] [phone] [place] [address] [phone] [facility] [phone] SLICK HUITRON MD Jan 29, 2017 12:41
[2017-01-29] MEDS ORDERED: CLOT30CR24 TOP (12:44)
[2017-01-29] MEDS ORDERED: HYDR-906 PO (12:44)
[2017-01-29] MEDS ORDERED: FLUC150T17 PO (12:44)
== END 2017-01-29 13:16 | disposition home or self-care (01) ==
LOC: FTE 11:27
DX: B37.3 Candidiasis of vulva and vagina (principal); J45.909 Unspecified asthma, uncomplicated; E03.9 Hypothyroidism, unspecified
CPT/HCPCS: 99284

== ENCOUNTER 2017-02-04 10:22 | Emergency (ER) | payer OTHER ==
[~2017-02-04] VITALS: Wt 59.1 kg
[~2017-02-04 10:22] MED LIST changes: +CLOT30CR24 TOP; +FLUC150T17 PO; +HYDR-906 PO
--- NOTE | 2017-02-04 12:16 | ERD ---
ER Documentation Chief Complaint Chief Complaint sent by pmd for antibiotic tx, abcess unresolved HPI 56-year-old female with a brain abscess and Bactrim is not improving and was referred to emergency department by his primary care provider. Patient describes localized pain with vaginal lesion, and is sharp and achy and is draining today. She denies any fevers or chills. ROS All systems reviewed and are negative except as per history of present illness. Medications Home Meds Active Scripts Hydrocodone/Acetaminophen ([place] 5-325 Tablet) 1 Each Tablet, 1 TAB PO Q6H Y for PAIN, #12 TAB Prov:SLICK DIEGO MD 01/29/17 Clotrimazole* (Clotrimazole* AF) 1% - 30 Gm Cream.gm., 1 APPLIC TOP BID for 7 Days, TUB Prov:SLICK DIEGO MD 01/29/17 Fluconazole* (Diflucan*) 150 Mg Tablet, 150 MG PO ONCE, #1 TAB Prov:SLICK DIEGO MD 01/29/17 Ondansetron (Ondansetron Odt) 4 Mg Tab.rapdis, 4 MG PO Q6H Y for NAUSEA AND/OR VOMITING, #10 TAB Prov:KHURRAM KRUGER PA-C 12/23/16 Naproxen* (Naprosyn*) 500 Mg Tablet, 500 MG PO BID Y for PAIN AND/OR INFLAMMATION, #20 TAB Prov:KHURRAM KRUGER PA-C 12/23/16 Sulfamethoxazole/Trimethoprim* (Bactrim Ds* Tablet) 1 Each Tablet, 1 TAB PO BID , #10 TAB Prov:KHURRAM KRUGER PA-C 12/23/16 Benzonatate* (Tessalon Perle*) 100 Mg Capsule, 100 MG PO Q8H Y for COUGH, #30 CAP Prov:JENNIFER FRAGA MD 07/09/16 Albuterol Sulfate* (Ventolin HFA*) 18 Gm Hfa.aer.ad, 2 PUFF INHALATION Q4H, #1 INHALER Prov:JENNIFER FRAGA MD 07/09/16 Reported Medications Venlafaxine Hcl* (Effexor XR*) 150 Mg Cap.sr.24h, 150 MG PO BID, CAP TAKE 1 TAB-QAM AND 2 TAB-QHS 07/09/16 Levothyroxine Sodium* (Levothyroxine Sodium*) 112 Mcg Tablet, 112 MCG PO BEFORE BREAKFAST, #30 TAB 07/09/16 Ergocalciferol (Vitamin D2) (VITAMIN D2) 50,000 Unit Capsule, 70373 UNIT PO ONCE A WEEK, CAP Thursday06/19/16 Ibuprofen* (Ibuprofen*) 800 Mg Tab, 800 MG PO DAILY, TAB 06/19/16 Mometasone-Formoterol (Dulera) 200-5 Mcg/Inh - 13 Gm Hfa.aer.ad, 2 PUFFS INHALATION BID, #1 INHALER 11/13/15 Montelukast Sodium* (Montelukast Sodium*) 10 Mg Tablet, 10 MG PO QHS, #30 TAB 11/13/15 Loratadine* (Loratadine*) 10 Mg Tablet, 10 MG PO DAILY, #30 TAB 08/14/15 Fluticasone Propionate* (Fluticasone Propionate* Nasal) 50 Mcg/[place] - 16 Gm [place].susp, 1 SPRAY NASAL DAILY, #1 BOTTLE TO EACH NOSTRIL 08/14/15 Omeprazole* (Prilosec*) 40 Mg Capsule.dr, 40 MG PO AC BREAKFAST, CAP 05/30/14 Allergies Allergies: Coded Allergies: Penicillins (Verified Allergy, Mild, RASH, 07/09/16) PMhx/Soc History of Surgery: Yes (APPENDECTOMY, HYSTERECTOMY, stents) Anesthesia Reaction: No Hx Neurological Disorder: No Hx Respiratory Disorders: Yes (ASTHMA) Hx Cardiac Disorders: Yes (BRADYCARDIA) Hx Psychiatric Problems: Yes (DEPRESSION) Hx Miscellaneous Medical Probl: Yes (HYPOTHYROIDISM) Hx Alcohol Use: No Hx Substance Use: No Hx Tobacco Use: No Physical Exam Vitals Vital Signs Date Time Temp Pulse Resp B/P Pulse Ox O2 Delivery O2 Flow Rate FiO2 02/04/17 11:03 98.4 68 20 101/58 98 Physical Exam General: Well-developed, well-nourished. The patient appears in no acute distress. HEENT: Head is normocephalic, atraumatic. No scleral icterus. \ Neck: Supple. Nontender. Lungs: Clear to auscultation. Normal air movement. Heart: Regular rate and rhythm. S1 and S2 are normal. No murmurs, gallops, or rubs. Abdomen: Soft, nontender, nondistended. Bowel sounds are normoactive. Groin: 1.5cm are of fluctuance in perineum, draining purulent material. Extremities: No clubbing or cyanosis. Normal pulses. Moving extremities x 4. No weakness. Neurologic: Alert and oriented 3. No focal deficits. Skin: Normal turgor. No rash or lesions. Results 24 hrs Current Medications Medications (Trade) Dose Ordered Sig/Selam Route PRN Reason Start Time Stop Time Status Last Admin Dose Admin Lidocaine (Xylocaine 1% (Mdv) 20 ml) 20 ml ONCE ONCE SC 02/04/17 12:30 02/04/17 12:31 Procedures/MDM Abscess Incision and Drainage with irrigation by me: Location: perineum Anesthesia: Local 1% Lidocaine Technique: Irrigated. Disrupted loculations w/ instrumentation Packing: None Complications: Neurovascularly intact post procedure 48 hour wound check. Scar minimization instructions given. Patient's skin symptoms have stabilized while they have been evaluated in the department and are appropriate for outpatient care and work up. Exam and w/u not consistent w/ sepsis, deep space infection, or foreign body. Departure Diagnosis: Primary Impression: Abscess Additional Impression: Encounter for incision and drainage procedure Condition: ZHEN Valadez PA-C Feb 04, 2017 12:16
[2017-02-04] MEDS ORDERED: LIDOCAINE 1% (MDV) 20 ML INJ SC ONE (12:30)
== END 2017-02-04 12:53 | disposition home or self-care (01) ==
LOC: FTE 10:22
DX: L02.215 Cutaneous abscess of perineum (principal); J45.909 Unspecified asthma, uncomplicated; E03.9 Hypothyroidism, unspecified

== ENCOUNTER 2017-03-28 07:15 | Emergency (ER) | END 2017-03-28 11:20 | disposition home or self-care (01) ==

== ENCOUNTER 2017-04-04 10:05 | Emergency (ER) | END 2017-04-04 13:12 | disposition home or self-care (01) ==

== ENCOUNTER 2017-04-30 08:23 | Emergency (ER) | END 2017-04-30 10:59 | disposition home or self-care (01) ==

== ENCOUNTER 2017-10-08 07:53 | Emergency (ER) | END 2017-10-08 09:22 | disposition home or self-care (01) ==

== ENCOUNTER 2017-12-23 10:49 | Day surgery (SDC) | END 2017-12-23 14:53 | disposition home or self-care (01) ==

== ENCOUNTER 2018-06-11 07:08 | Emergency (ER) | payer OTHER ==
[~2018-06-11] VITALS: Ht 162.6 cm; Wt 52.0 kg
[~2018-06-11 07:08] MED LIST changes: +ACET325T33 PO; -BENZ100C70 PO; +CHOL100062 PO; -CLOT30CR24 TOP; -ERGO500037 PO; -FLUC150T17 PO; +GABA300C16 PO; -HYDR-906 PO; +HYOS0.1297 SL; +IBUP-1561 PO; -IBUP800T25 PO; +KETO5DRO22 OP; +LORA1TAB PO; +MECL-77 PO; -NAPR-260 PO; -ONDA4TAB14 PO; -SULF1TAB31 PO; -VENL150C PO
[2018-06-11 07:12] VITALS: Ht 162.6 cm; Wt 52.0 kg
[2018-06-11] MEDS ORDERED: DOCU-144 PO (07:50)
[2018-06-11] MEDS ORDERED: HYDR25SU23 PR (07:50)
--- NOTE | 2018-06-11 07:53 | ERD ---
ER Documentation Chief Complaint Chief Complaint pt is bib self with c/o possible abscess to sacracal area 3 wks HPI 58-year-old female presenting with irritation and pain around her rectum. She states is been persistently going on for the last 3 weeks. She has not taken any medication denies fever. Denies abdominal pain. Denies other medical problems. NKDA. Surgical history denies. Social history denies ROS All systems reviewed and are negative except as per history of present illness. Medications Home Meds Active Scripts Docusate Sodium* (Colace*) 100 Mg Capsule, 100 MG PO TID, #30 CAP Prov:LAURA GIL PA-C 06/11/18 Hydrocortisone Acetate (Anusol-Hc) 25 Mg Supp.rect, 1 SUPP DC BID PRN for HEMORROID PAIN/ITCHING, #12 SUPP.RECT Prov:LAURA GIL PA-C 06/11/18 Acetaminophen* (Tylenol*) 325 Mg Tablet, 1 TAB PO Q4 PRN for PAIN AND OR ELEVATED TEMP, #30 TAB Prov:BRAULIO AMEZCUA PA-C 04/30/17 Ibuprofen* (Motrin*) 400 Mg Tab, 400 MG PO Q6H PRN for PAIN AND OR ELEVATED TEMP, #30 TAB Prov:BRAULIO AMEZCUA PA-C 04/30/17 Albuterol Sulfate* (Ventolin HFA*) 18 Gm Hfa.aer.ad, 2 PUFF INHALATION Q4H, #1 INHALER Prov:JENNIFER FRAGA MD 07/09/16 Reported Medications Lorazepam* (Lorazepam*) 1 Mg Tablet, 1 MG PO HS PRN for SLEEP, #30 TAB 12/23/17 Meclizine Hcl* (Meclizine Hcl*) 25 Mg Tablet, 12.5 MG PO Q8H PRN for DIZZINESS, TAB 12/23/17 Cholecalciferol* (Vitamin D3*) 1,000 Unit Tablet, 2000 UNIT PO DAILY, TAB 12/23/17 Hyoscyamine Sulfate* (Hyoscyamine Sulfate*) 0.125 Mg Tab.subl, 0.125 MG SL Q4H PRN for STOMACH IRRITATION, TAB 12/23/17 Ketotifen Fumarate (KETOTIFEN FUMARATE) 5 Ml Drops, 5 ML OP, BOTTLE 12/23/17 Gabapentin* (Gabapentin*) 300 Mg Capsule, 300 MG PO BID, #60 CAP 12/23/17 Levothyroxine Sodium* (Levothyroxine Sodium*) 112 Mcg Tablet, 112 MCG PO BEFORE BREAKFAST, #30 TAB 07/09/16 Mometasone-Formoterol (Dulera) 200-5 Mcg/Inh - 13 Gm Hfa.aer.ad, 2 PUFFS INHALATION BID, #1 INHALER 11/13/15 Montelukast Sodium* (Montelukast Sodium*) 10 Mg Tablet, 10 MG PO QHS, #30 TAB 11/13/15 Loratadine* (Loratadine*) 10 Mg Tablet, 10 MG PO DAILY, #30 TAB 08/14/15 Fluticasone Propionate* (Fluticasone Propionate* Nasal) 50 Mcg/[place] - 16 Gm [place].susp, 1 SPRAY NASAL DAILY, #1 BOTTLE TO EACH NOSTRIL 08/14/15 Omeprazole* (Prilosec*) 40 Mg Capsule.dr, 40 MG PO AC BREAKFAST, CAP 05/30/14 Allergies Allergies: Coded Allergies: Penicillins (Verified Allergy, Mild, RASH, 04/30/17) PMhx/Soc History of Surgery: Yes (APPENDECTOMY, HYSTERECTOMY) Anesthesia Reaction: No Hx Neurological Disorder: No Hx Respiratory Disorders: Yes (ASTHMA) Hx Cardiac Disorders: No Hx Psychiatric Problems: Yes (DEPRESSION, ANXIETY) Hx Miscellaneous Medical Probl: No Hx Alcohol Use: No Hx Substance Use: No Hx Tobacco Use: No FmHx Family History: No diabetes, No coronary disease, No other Physical Exam Vitals Vital Signs Date Temp Pulse Resp B/P (MAP) Pulse Ox O2 O2 Flow FiO2 Time Delivery Rate 06/11/18 97.0 79 16 110/60 98 07:12 (77) Physical Exam GENERAL: The patient is well-appearing, well-nourished, in no acute distress CHEST: Clear to auscultation bilaterally. There are no rales, wheezes or rhonch i. HEART: Regular rate and rhythm. No murmurs, clicks, rubs or gallops. No S3 or S4. ABDOMEN:Soft, nontender and nondistended. Good bowel sounds. No rebound or guarding. No gross peritonitis. No gross organomegaly or masses. No Dsouza sign or McBurney point tenderness. RECTAL: Hemorrhoid skin tag noted at the anus. No thrombosed hemorrhoid noted. No surrounding erythema. No pain with digital rectal exam. Procedures/MDM MDM: 58-year-old female presenting with rectal pain. Patient has a hemorrhoid noted on exam which is likely the cause. I have considered perirectal and perianal abscess however have low suspicion. Exam is non-concerning and vitals are stable. I do not feel blood work or imaging is indicated. Do not feel pat ient requires antibiotics. Patient is discharged with supportive medications and told to follow-up with primary care. All questions answered at discharge Departure Diagnosis: Primary Impression: Acute hemorrhoid Condition: Stable Patient Instructions: Hemorrhoids Referrals: [facility] Additional Instructions: FOLLOW UP WITH YOUR PRIMARY CARE PHYSICIAN TOMORROW.Return to this facility if you are not improving as expected. LAURA GIL PA-C Jun 11, 2018 07:53
== END 2018-06-11 08:45 | disposition home or self-care (01) ==
LOC: FTE 07:08
DX: K64.9 Unspecified hemorrhoids (principal); J45.909 Unspecified asthma, uncomplicated
CPT/HCPCS: 99284